=== PATIENT | female | born 1980 | race Caucasian/White ===

== ENCOUNTER 2025-05-12 11:56 | Emergency (ER) | payer SELFPAY ==
[2025-05-12 11:57] VITALS: BP 133/113; PULSE 97; RESP 18; TEMP 36.8; O2SAT 93; BMI 32.5
--- OUTSIDE RECORDS SUMMARY | 2025-05-12 12:02 | XMS_ITS | Encounter Summary ---
Author Organization [facility] Address [address] [place] [address] Care Team Providers Care Catechist Name Role Phone Gerardo Kingsley DO Primary Care Provider Unavaila ble Encounter Details Date Type Department Care Team (Late st Contact Info) Description 08/03/2017 Lab Requisition [facility] General Laboratory Services [place] [address] [place] [phone] Gerardo Kingsley DO NO ADDRESS ON FILE Social History Tobacco Use Types Packs/Day Years Used Date Smoking Tobacco: Every Day Cigarettes Smokeless Tobacco: Never Alcohol Use Standard Drinks/Week Comments No 0 (1 standard drink = 0.6 oz pur e alcohol) Comments No Sex and Gender Information Value Date Recorded Sex Assigned at Not on file Legal Sex Female 12:25 PM CDT Gender Identity Not on file Sexual Orientation Not on file documented as of this encounter Plan of Treatment Not on file documented as of this encounter Procedures Procedure Name Priority Date/Time Associated Diagnosis Comments CBC WITH DIFFERENTIAL Routine 08/03/2017 9:52 PM CDT SEDIMENTATION RATE Routine 08/03/2017 9: 52 PM CDT BASIC METABOLIC PANEL Routine 08/03/2017 9:52 PM CDT documented in this encounter Results * BASIC METABOLIC PANEL (08/03/2017 9:52 PM CDT) SODIUM 138 136 - 145 mmol/L 08/03/2017 11:51 PM CDT [facility] POTASSIUM 4.1 3.5 - 5.1 mmol/L 08/03/2017 11:51 PM CDT [facility] CHLORIDE 101 98 - 107 mmol/L 08/03/2017 11:51 PM CDT [facility] CO2 23 22 - 29 mmol/L 08/03/2017 11:[address] [facility] CALCIUM 9.3 8.6 - 10.0 mg/dL 08/03/2017 11:[address] [facility] BUN 17 6 - 20 mg/dL 08/03/2017 11:[address] [facility] CREATININE 0.70 0.51 - 0.95 mg/dL 08/03/2017 11:[address] [facility] GLUCOSE 104 74 - 106 mg/dL 08/03/2017 11:[address] [facility] GFR >60 >=60 mL/min/1.7 3 sq meter 08/03/2017 11:[address] [facility] Comment: eGFR has not been validated for use in the elderly (> 70 years of age), women, patients with serious co-morbid conditions, or persons with extremes of body size or muscle mass and should also be interpreted with caution in patients with acute kidney failure, dialysis dependent patients, patients reporting exceptional dietary intake (e.g. vegetarian diet, high protein diets, creatine supplementation), and patients with severe liver disease. Based on National Kidney Disease Education Program If patient is , please refer to the GFR result. GFR, >60 >=60 mL/min/1.7 3 sq meter 08/03/2017 11:51 PM T [facility] ANION GAP 14 12 - 20 mmol/L 08/03/2017 11:[address] [facility] Blood 08/03/2017 9:52 PM CDT 08/03/2017 11:01 PM CDT us Gerardo Kingsley DO CHEMISTRY ORDERABLES Final Resu lt [facility] CLIA # [id number] [address] [place] [address] * (ABNORMAL) CBC WITH DIFFERENTIAL (08/03/2017 9:52 PM CDT) WBC 9.7 4.0 - 10.0 K/uL 08/03/2017 11:[address] [facility] RBC 4.42 3.93 - 5.22 M/uL 08/03/2017 11:[address] [facility] HEMOGLOBIN 13.5 11.2 - 15.7 g/dL 08/03/2017 11:[address] [facility] HEMATOCRIT 41.4 34.1 - 44.9 % 08/03/2017 11:[address] [facility] MCV 93.7 79.4 - 94.8 fL 08/03/2017 11:[address] [facility] MCH 30.5 25.6 - 32.2 pg 08/03/2017 11:[address] [facility] MCHC 32.6 32.2 - 35.5 g/dL 08/03/2017 11:[address] [facility] RDW 13.4 11.0 - 14.5 % 08/03/2017 11:[address] [facility] RDW-STDEV 44.2 36.9 - 56.9 fL 08/03/2017 11:[address] [facility] PLATELETS 329 163 - 337 K/uL 08/03/2017 11:[address] [facility] MPV 10.7 10.0 - 14.8 fL 08/03/2017 11:[address] [facility] NEUTROPHILS 55 34 - 71 % 08/03/2017 11:[address] [facility] LYMPHOCYTES 30 19 - 52 % 08/03/2017 11:[address] [facility] MONOCYTES 9 5 - 13 % 08/03/2017 11:[address] [facility] EOSINOPHILS 6 1 - 6 % 08/03/2017 11:[address] [facility] BASOPHILS 1 0 - 1 % 08/03/2017 11:[address] [facility] IMMATURE GRANULOCYTES 0 % 08/03/2017 11:[address] [facility] NEUTROPHIL ABSOLUTE 5.32 1.56 - 6.13 K/uL 08/03/2017 11:36 PM CDT [facility] LYMPHOCYTE ABSOLUTE 2.93 1.20 - 3.40 K/uL 08/03/2017 11:36 PM CDT [facility] MONOCYTE ABSOLUTE 0.83(H) 0.24 - 0.36 K/uL 08/03/2017 11:36 PM CDT [facility] EOSINOPHIL ABSOLUTE 0.54(H) 0.04 - 0.36 K/uL 08/03/2017 11:36 PM CDT [facility] BASOPHILS ABSOLUTE 0.06 0.01 - 0.08 K/uL 08/03/2017 11:36 PM CDT [facility] IMMATURE GRANULOCYTES ABSOLUTE 0.02 K/uL 08/03/2017 11:36 PM T [facility] Blood 08/03/2017 9:52 PM CDT 08/03/2017 11:01 PM CDT us Gerardo Kingsley DO HEMATOLOGY ORDERABLES Final Res ult [facility] CLIA # [id number] [address] [place] [address] * SEDIMENTATION RATE (08/03/2017 9:52 PM CDT) ESR (SEDIMENTATION RATE) 8 0 - 20 mm/Hr 08/04/2017 12:56 AM CDT [facility] Blood 08/03/2017 9:52 PM CDT 08/03/2017 11:01 PM CDT us Gerardo Kingsley DO HEMATOLOGY ORDERABLES Final Res ult [facility] CLIA # [id number] [address] [place] [address] [phone] documented in this encounter Visit Diagnoses Not on filedocumented in this encounter Care Teams Catechist Relationship Specialty Start Date End Date Gerardo Kingsley DO PCP - General Family Practice 12/21/18 documented as of this encounter
--- OUTSIDE RECORDS SUMMARY | 2025-05-12 12:02 | XMS_ITS | Encounter Summary ---
Author Organization [facility] Address [address] [place] [address] Care Team Providers Care Manager Financial Systems Name Role Phone Gerardo Kingsley DO Primary Care Provider Unavaila ble Encounter Details Date Type Department Care Team (Late st Contact Info) Description 12/14/2017 Lab Requisition [facility] General Laboratory Services [place] [address] [place] [phone] Gerardo Kingsley DO NO ADDRESS ON FILE [...] Procedure Name Priority Date/Time Associated Diagnosis Comments TROPONIN Routine 12/14/2017 8:40 PM INSURANCE AGENTS SUPERVISOR TSH Routine 12/14/2017 8:40 PM INSURANCE AGENTS SUPERVISOR COMPREHENSIVE METABOLIC PANEL Routine 12/14/2017 8:40 PM INSURANCE AGENTS SUPERVISOR documented in this encounter Results * COMPREHENSIVE METABOLIC PANEL (12/14/2017 8:40 PM INSURANCE AGENTS SUPERVISOR) SODIUM 139 136 - 145 mmol/L 12/14/2017 11:36 PM INSURANCE AGENTS SUPERVISOR [facility] POTASSIUM 3.6 3.5 - 5.1 mmol/L 12/14/2017 11:36 PM INSURANCE AGENTS SUPERVISOR [facility] CHLORIDE 99 98 - 107 mmol/L 12/14/2017 11:36 PM [facility] CO2 26 22 - 29 mmol/L 12/14/2017 11:36 PM [facility] CALCIUM 9.6 8.6 - 10.0 mg/dL 12/14/2017 11:36 PM [facility] BUN 12 6 - 20 mg/dL 12/14/2017 11:36 PM [facility] CREATININE 0.76 0.51 - 0.95 mg/dL 12/14/2017 11:36 PM [facility] GLUCOSE 79 74 - 106 mg/dL 12/14/2017 11:36 PM [facility] TOTAL PROTEIN 7.4 6.6 - 8.7 g/dL 12/14/2017 11:36 PM [facility] ALBUMIN 4.5 3.5 - 5.2 g/dL 12/14/2017 11:36 PM [facility] BILIRUBIN TOTAL 0.2 0.0 - 1.2 mg/dL 12/14/2017 11:36 PM [facility] ALKALINE PHOSPHATASE 75 35 - 104 U/L 12/14/2017 11:36 PM [facility] AST 15 10 - 35 U/L 12/14/2017 11:36 PM [facility] ALT 14 10 - 35 U/L 12/14/2017 11:36 PM [facility] GFR >60 >=60 mL/min/1.7 3 sq meter 12/14/2017 11:36 PM [facility] Comment: eGFR has not been validated for [...] GFR, >60 >=60 mL/min/1.7 3 sq meter 12/14/2017 11:36 PM [facility] ANION GAP 14 12 - 20 mmol/L 12/14/2017 11:36 PM INSURANCE AGENTS SUPERVISOR [facility] Blood Venipuncture / Unknown 12/14/2017 8:40 PM INSURANCE AGENTS SUPERVISOR 12/14/2017 10:56 PM INSURANCE AGENTS SUPERVISOR us Gerardo Kingsley DO CHEMISTRY ORDERABLES Final Resu lt Performing Organization Address City/[facility]/ZIP Co de Phone Number [facility] CLIA # [id number] [address] [place] [address] * TSH (12/14/2017 8:40 PM INSURANCE AGENTS SUPERVISOR) TSH 2.62 0.27 - 4.20 uIU/mL 12/14/2017 11:36 PM INSURANCE AGENTS SUPERVISOR [facility] Blood Venipuncture / Unknown 12/14/2017 8:40 PM INSURANCE AGENTS SUPERVISOR 12/14/2017 10:56 PM INSURANCE AGENTS SUPERVISOR us Gerardo Kingsley DO CHEMISTRY ORDERABLES Final Resu lt Performing Organization Address [facility]/ZIP Co de Phone Number [facility] CLIA # [id number] [address] [place] [address] * TROPONIN (12/14/2017 8:40 PM INSURANCE AGENTS SUPERVISOR) TROPONIN T <0.01 <=0.01 ng/mL 12/14/2017 11:36 PM INSURANCE AGENTS SUPERVISOR [facility] Blood Venipuncture / Unknown 12/14/2017 8:40 PM INSURANCE AGENTS SUPERVISOR 12/14/2017 10:56 PM INSURANCE AGENTS SUPERVISOR us Geradro Kingsley DO CHEMISTRY ORDERABLES Final Resu lt Performing Organization Address [facility]/ZIP Co de Phone Number [facility] CLIA # [id number] [address] [place] [phone] documented in this encounter Visit Diagnoses Not on filedocumented in this encounter Care Teams Manager Financial Systems Relationship Specialty Start Date End Date Gerardo Kingsley, PCP - General Family Practice 2/26/19 documented as of this encounter
--- OUTSIDE RECORDS SUMMARY | 2025-05-12 12:02 | XMS_ITS | Encounter Summary ---
Author Organization [facility] Address [address] [place] [address] Care Team Providers Care Drum Handler Name Role Phone Gerardo Kingsley DO Primary Care Provider Unavaila ble Encounter Details Date Type Department Care Team (Late st Contact Info) Description 03/27/[address] [facility] Laboratory Services [place] [address] [place] [phone] Gerardo Kingsley DO NO ADDRESS ON FILE Sick Social History Tobacco Use Types Packs/Day Years [...] Procedure Name Priority Date/Time Associated Diagnosis Comments DIFFERENTIAL, MANUAL Routine 03/26/2015 6:00 PM CDT Sick [ICD-9-CM] CBC WITH DIFFERENTIAL Routine 03/26/2015 6:00 PM CDT Sick [ICD-9-CM] TSH Routine 03/26/2015 6:00 PM CDT Sick [ICD-9-CM] COMPREHENSIVE METABOLIC PANEL Routine 03/26/2015 6:00 PM CDT Sick [ICD-9-CM] documented in this encounter Results * (ABNORMAL) MANUAL DIFFERENTIAL (03/26/2015 6:00 PM CDT) Pathologist [facility] ADJUSTED WBC 11.3 K/uL 03/27/2015 10:23 AM T [facility] [employer] [facility] SEGMENTED NEUTROPHILS 65 45 - 70 % 03/27/2015 10:23 AM T [facility] [employer] [facility] LYMPHOCYTES RELATIVE 30 20 - 45 % 03/27/2015 10:23 AM T [facility] [employer] [facility] MONOCYTES RELATIVE 5 2 - 8 % 03/27/2015 10:23 AM T [facility] [employer] [facility] PLATELET EST. Consistent with Count 03/27/2015 10:23 AM T [facility] [employer] [facility] NEUTROPHILS ABSOLUTE COUNT 7.35(H) 1.78 - 5.38 K/uL 03/27/2015 10:23 AM T [facility] [employer] [facility] LYMPHOCYTES ABSOLUTE 3.39 1.20 - 4.00 K/uL 03/27/2015 10:23 AM T [facility] [employer] [facility] MONOCYTES ABSOLUTE 0.57 0.30 - 0.82 K/uL 03/27/2015 10:23 AM T [facility] [employer] [facility] TOTAL CELLS COUNTED IN DIFF 100 03/27/2015 10:23 AM T [facility] [employer] [facility] RBC MORPHOLOGY Normal 03/27/2015 10:23 AM [facility] [employer] [facility] Blood Venipuncture - L ab Collect / Unknown 03/26/2015 6:00 PM CDT 03/27/2015 10:02 AM CDT us Gerardo Kingsley DO HEMATOLOGY ORDERABLES COM Final Result [facility] CLIA # [id number] [address] [place] [address] * TSH (03/26/2015 6:00 PM CDT) Pathologist [facility] TSH 3.73 0.30 - 4.80 uIU/mL 03/27/2015 10:34 AM T [facility] [employer] [facility] Blood Venipuncture - L ab Collect / Unknown 03/26/2015 6:00 PM CDT 03/27/2015 10:02 AM CDT us Gerardo Kingsley DO CHEMISTRY ORDERABLES Final Resu lt [facility] [place] VICKIE # [id number] [address] [place] [id number] * (ABNORMAL) COMPREHENSIVE METABOLIC PANEL (03/26/2015 6:00 PM CDT) SODIUM 139 136 - 145 mmol/L 03/27/2015 10:34 AM CDT [employer] [facility] [place] POTASSIUM 3.8 3.5 - 5.1 mmol/L 03/27/2015 10:34 AM CDT [facility] [place] CHLORIDE 101 98 - 107 mmol/L 03/27/2015 10:34 AM CDT [facility] [place] CO2 29 21 - 32 mmol/L 03/27/2015 10:34 AM CDT [facility] [place] CALCIUM 8.9 8.5 - 10.1 mg/dL 03/27/2015 10:34 AM T [facility] [place] BUN 11 7 - 18 mg/dL 03/27/2015 10:34 AM CDT [employer] [facility] [place] CREATININE 0.86 0.60 - 1.30 mg/dL 03/27/2015 10:34 AM T [facility] [place] GLUCOSE 78 74 - 106 mg/dL 03/27/2015 10:34 AM T [employer] [facility] [place] TOTAL PROTEIN 8.1 6.4 - 8.2 g/dL 03/27/2015 10:34 AM T [facility] [place] ALBUMIN 4.4 3.4 - 5.0 g/dL 03/27/2015 10:34 AM CDT [employer] [facility] [place] BILIRUBIN TOTAL 0.2 0.2 - 1.0 mg/dL 03/27/2015 10:34 AM CDT [employer] [facility] [place] ALKALINE PHOSPHATASE 80 46 - 116 U/L 03/27/2015 10:34 AM CDT [employer] [facility] [place] AST 17 15 - 37 U/L 03/27/2015 10:34 AM CDT [employer] [facility] [place] ALT 22(L) 30 - 65 U/L 03/27/2015 10:34 AM CDT [facility] [employer] [facility] GFR >60 >=60 mL/min/1.7 3 sq meter 03/27/2015 10:34 AM [facility] [employer] [facility] Comment: eGFR has not been validated [...] GFR, >60 >=60 mL/min/1.7 3 sq meter 03/27/2015 10:34 AM T [facility] [employer] [facility] ANION GAP 9(L) 12 - 20 mmol/L 03/27/2015 10:34 AM [facility] [employer] [facility] Blood Venipuncture - L ab Collect / Unknown 03/26/2015 6:00 PM CDT 03/27/2015 10:02 AM CDT Narrative [facility] [employer] [facility] - 03/27/2015 10:34 AM CDT Effective 06/29/2014, the Alkaline Phosphatase test method and reference range have changed. Please take this into consideration when interpreting results prior to or after this date. us Gerardo Kingsley DO CHEMISTRY ORDERABLES Final Resu lt [facility] [employer] [id number] [address] [place] [address] * (ABNORMAL) CBC WITH DIFFERENTIAL (03/26/2015 6:00 PM CDT) WBC 11.3(H) 4.0 - 10.0 K/uL 03/27/2015 10:08 AM T [facility] [employer] [facility] RBC 5.06 3.93 - 5.22 M/uL 03/27/2015 10:08 AM [facility] [employer] [facility] HEMOGLOBIN 15.9(H) 11.2 - 15.7 g/dL 03/27/2015 10:08 AM CDT [employer] [facility] [place] HEMATOCRIT 46.5(H) 34.1 - 44.9 % 03/27/2015 10:08 AM CDT [facility] [place] MCV 91.9 79.4 - 94.8 fL 03/27/2015 10:08 AM CDT [facility] MCH 31.4 25.6 - 32.2 pg 03/27/2015 10:08 AM CDT [facility] [place] MCHC 34.2 32.2 - 35.5 g/dL 03/27/2015 10:08 AM CDT [facility] RDW 13.2 11.0 - 14.5 % 03/27/2015 10:08 AM T [facility] RDW-STDEV 43.4 36.9 - 56.9 fL 03/27/2015 10:08 AM CDT [employer] [facility] PLATELETS 290 163 - 337 K/uL 03/27/2015 10:08 AM CDT [employer] [facility] MPV 11.0 10.0 - 14.8 fL 03/27/2015 10:08 AM T [employer] [facility] Blood Venipuncture - L ab Collect / Unknown 03/26/2015 6:00 PM CDT 03/27/2015 10:02 AM CDT us Gerardo Kingsley DO HEMATOLOGY ORDERABLES Final Res ult [email or web address] CLIA # [id number] [address] [place] [address] [phone] documented in this encounter Visit Diagnoses Diagnosis Sick Other unknown and unspecified cause of morbidity or mortality documented in this encounter Care Teams Drum Handler Relationship Specialty Start Date End Date Gerardo Kingsley DO PCP - General Family Practice 12/21/18 documented as of this encounter
--- OUTSIDE RECORDS SUMMARY | 2025-05-12 12:02 | XMS_ITS | Encounter Summary ---
Author Organization [facility] Address [address] [place] [address] Care Team Providers Care Machine Driller Name Role Phone Gerardo Kingsley DO Primary Care Provider Unavaila ble Encounter Details Date Type Department Care Team (Late st Contact Info) Description 11/20/2020 Lab Requisition [facility] Laboratory Services [place] [address] [place] [phone] Gerardo Kingsley DO NO ADDRESS ON FILE Social History Tobacco Use Types Packs/Day Years Used Date Smoking Tobacco: Every Day Cigarettes 1.5 15 Smokeless Tobacco: Never Alcohol Use Standard Drinks/Week [...] Associated Diagnosis Comments CBC WITH DIFFERENTIAL Routine 11/20/2020 2:22 PM TUMBLER OPERATOR TSH Routine 11/20/2020 2:10 PM TUMBLER OPERATOR LIPID PANEL Routine 11/20/2020 2:10 PM TUMBLER OPERATOR COMPREHENSIVE METABOLIC PANEL Routine 11/20/2020 2:10 PM TUMBLER OPERATOR documented in this encounter Results * (ABNORMAL) CBC WITH DIFFERENTIAL (11/20/2020 2:22 PM TUMBLER OPERATOR) WBC 7.5 4.0 - 10.0 K/uL 11/20/2020 2:44 PM [place] RBC 4.65 3.93 - 5.22 M/uL 11/20/2020 2:44 PM [place] HEMOGLOBIN 14.1 11.2 - 15.7 g/dL 11/20/2020 2:44 PM [place] HEMATOCRIT 42.7 34.1 - 44.9 % 11/20/2020 2:44 PM [place] MCV 91.8 79.4 - 94.8 fL 11/20/2020 2:44 PM [place] MCH 30.3 25.6 - 32.2 pg 11/20/2020 2:44 PM [place] MCHC 33.0 32.2 - 35.5 g/dL 11/20/2020 2:44 PM [place] RDW 12.1 11.0 - 14.5 % 11/20/2020 2:44 PM [place] RDW-STDEV 41.0 36.9 - 56.9 fL 11/20/2020 2:44 PM [place] PLATELETS 373(H) 163 - 337 K/uL 11/20/2020 2:44 PM [place] MPV 10.1 10.0 - 14.8 fL 11/20/2020 2:44 PM [place] NEUTROPHILS 57 34 - 71 % 11/20/2020 2:44 PM [place] LYMPHOCYTES 29 19 - 52 % 11/20/2020 2:44 PM [place] MONOCYTES 8 5 - 13 % 11/20/2020 2:44 PM [place] EOSINOPHILS 5 1 - 6 % 11/20/2020 2:44 PM [place] BASOPHILS 1 0 - 1 % 11/20/2020 2:44 PM [place] IMMATURE GRANULOCYTES 0 % 11/20/2020 2:44 PM [place] NEUTROPHIL ABSOLUTE 4.31 1.56 - 6.13 K/uL 11/20/2020 2:44 PM [place] LYMPHOCYTE ABSOLUTE 2.22 1.20 - 3.40 K/uL 11/20/2020 2:44 PM TUMBLER OPERATOR [facility] MONOCYTE ABSOLUTE 0.57(H) 0.24 - 0.36 K/uL 11/20/2020 2:44 PM TUMBLER OPERATOR [facility] EOSINOPHIL ABSOLUTE 0.34 0.04 - 0.36 K/uL 11/20/2020 2:44 PM TUMBLER OPERATOR [facility] BASOPHILS ABSOLUTE 0.08 0.01 - 0.08 K/uL 11/20/2020 2:44 PM TUMBLER OPERATOR [facility] IMMATURE GRANULOCYTES ABSOLUTE 0.02 K/uL 11/20/2020 2:44 PM TUMBLER OPERATOR [facility] Blood Venipuncture / Unknown 11/20/2020 2:22 PM TUMBLER OPERATOR 11/20/2020 2:22 PM TUMBLER OPERATOR Gerardo Kingsley DO HEMATOLOGY ORDERABLES Final Res ult Performing Organization Address City/[facility]/ZIP Co de Phone Number [facility] CLIA # [id number] [address] [place] [address] * TSH (11/20/2020 2:10 PM TUMBLER OPERATOR) TSH 1.90 0.27 - 4.20 uIU/mL 11/20/2020 3:25 PM [place] Blood Venipuncture / Unknown 11/20/2020 2:10 PM TUMBLER OPERATOR 11/20/2020 2:10 PM TUMBLER OPERATOR Gerardo Kingsley DO CHEMISTRY ORDERABLES Final Resu lt [facility] CLIA # [id number] [address] [place] [address] * (ABNORMAL) LIPID PANEL (11/20/2020 2:10 PM TUMBLER OPERATOR) CHOLESTEROL 175 <200 mg/dL 11/20/2020 3:25 PM [place] TRIGLYCERIDE 160(H) <150 mg/dL 11/20/2020 3:25 PM [place] HDL 29(L) 40 - 59 mg/dL 11/20/2020 3:25 PM [place] LDL CALCULATED 114(H) <100 mg/dL 11/20/2020 3:25 PM [place] NON-HDL CHOLESTEROL 146(H) <130 mg/dL 11/20/2020 3:25 PM [place] Blood Venipuncture / Unknown 11/20/2020 2:10 PM TUMBLER OPERATOR 11/20/2020 2:10 PM TUMBLER OPERATOR [facility] - 11/20/2020 3:25 PM TUMBLER OPERATOR TOTAL CHOLESTEROL mg/dL Desirable <200 Borderline high 200-239 High >=240 TRIGLYCERIDES mg/dL Normal <150 Borderline high 150-199 High 200-499 Very high >=500 HDL CHOLESTEROL mg/dL Low <40 Normal 40-59 Desirable >=60 NON HDL CHOLESTEROL mg/dL Optimal <130 Near Optimal 130-159 Borderline High 160-189 Very High >=190 CALCULATED LDL mg/dL LDL <70, OPTIMAL if have Atherosclerotic cardiovascular disease (ASCVD) or intermediate or higher (>7.5%) 10 year risk of ASCVD including most adults with diabetes. LDL <100, Optimal in adult patients with low (<7.5%) 10 year ASCVD risk LDL 100-160, Suboptimal LDL >160, High LDL >190, Very high ATPIII Guidelines Reference Ranges for Lipid Panels (NCEP/AMA) . us Gerardo Kingsley DO CHEMISTRY ORDERABLES Final Resu lt [facility] CLIA # [id number] [address] [place] [address] * (ABNORMAL) COMPREHENSIVE METABOLIC PANEL (11/20/2020 2:10 PM TUMBLER OPERATOR) SODIUM 133(L) 136 - 145 mmol/L 11/20/2020 3:25 PM [place] POTASSIUM 4.1 3.5 - 5.1 mmol/L 11/20/2020 3:25 PM [place] CHLORIDE 100 98 - 107 mmol/L 11/20/2020 3:25 PM [place] CO2 28 22 - 29 mmol/L 11/20/2020 3:25 PM [place] CALCIUM 9.4 8.6 - 10.0 mg/dL 11/20/2020 3:25 PM [place] BUN 12 6 - 20 mg/dL 11/20/2020 3:25 PM [place] CREATININE 0.72 0.51 - 0.95 mg/dL 11/20/2020 3:25 PM [place] GLUCOSE 90 74 - 99 mg/dL 11/20/2020 3:25 PM [place] TOTAL PROTEIN 7.3 6.6 - 8.7 g/dL 11/20/2020 3:25 PM [place] ALBUMIN 4.2 3.5 - 5.2 g/dL 11/20/2020 3:25 PM [place] BILIRUBIN TOTAL 0.3 <=1.2 mg/dL 11/20/2020 3:25 PM [place] ALKALINE PHOSPHATASE 84 35 - 104 U/L 11/20/2020 3:25 PM [place] AST 15 10 - 35 U/L 11/20/2020 3:25 PM [place] ALT 15 10 - 35 U/L 11/20/2020 3:25 PM [place] GFR >60 >=60 mL/min/1.7 3 sq meter 11/20/2020 3:25 PM [place] Comment: eGFR has not been validated for [...] GFR, >60 >=60 mL/min/1.7 3 sq meter 11/20/2020 3:25 PM [place] ANION GAP 5(L) 12 - 20 mmol/L 11/20/2020 3:25 PM TUMBLER OPERATOR [facility] Blood Venipuncture / Unknown 11/20/2020 2:10 PM TUMBLER OPERATOR 11/20/2020 2:10 PM TUMBLER OPERATOR us Gerardo Kingsley DO CHEMISTRY ORDERABLES Final Resu lt [facility] CLIA # [id number] [address] [place] [id number] documented in this encounter Visit Diagnoses Not on filedocumented in this encounter Care Teams Machine Driller Relationship Specialty Start Date End Date Gerardo Kingsley DO PCP - General Family Practice 12/21/18 documented as of this encounter
--- OUTSIDE RECORDS SUMMARY | 2025-05-12 12:02 | XMS_ITS | Encounter Summary ---
Author Organization [facility] Address [address] [place] [address] Care Team Providers Care Contract Consultant Name Role Phone Gerardo Kingsley DO Primary Care Provider Unavaila ble Encounter Details Date Type Department Care Team (Late st Contact Info) Description 03/29/2018 Lab Requisition [facility] Laboratory Services [place] [address] [place] [id number] Ryan Nieto, PA [address] [place] [address] Social History Tobacco Use Types Packs/Day Years [...] Procedure Name Priority Date/Time Associated Diagnosis Comments ALPHA-GAL PANEL Routine 03/29/2018 8:00 PM CDT documented in this encounter Results * (ABNORMAL) ALPHA-GAL PANEL (03/29/2018 8:00 PM CDT) ALLERGEN BEEF, IGE 7.22(H) <0.35 kU/L 04/02/2018 3:56 PM CDT [facility] BEEF CLASS 3 04/02/2018 3:56 PM CDT [facility] ALLERGEN LESLIE/MUTTON, IGE 2.77(H) <0.35 kU/L 04/02/2018 3:56 PM CDT [facility] LESLIE/MUTTON CLASS 2 018 3:56 PM CDT [facility] ALLERGEN PORK, IGE 3.44(H) <0.35 kU/L 04/02/2018 3:56 PM CDT [facility] PORK CLASS 2 04/02/2018 3:56 PM CDT [facility] Comment: The test method is the CÜR ImmunoCAP allergen-specific IgE system. CLASS INTERPRETATION <0.10 kU/L= 0, Negative; 0.10 - 0.34 kU/L= 0/1, Equivocal/Borderline; 0.35 - 0.69 kU/L=1, Low Positive; 0.70 - 3.49 kU/L=2, Moderate Positive; 3.50 - 17.49 kU/L=3, High Positive; 17.50 - 49.99 kU/L= 4, Very High Positive; 50.00 - 99.99 kU/L= 5, Very High Positive; >99.99 kU/L=6, Very High Positive *This test was developed and its performance characteristics determined by [employer]. It has not been cleared or approved by the U.S. Food and Drug Administration. GALACTOSE - ALPHA -1, 3 - GALACTOSE, IGE 11.90(H) <0.35 kU/L 04/02/2018 3:56 PM CDT [facility] Comment: Previous reports (JUANY 2009;123:426-433) have demonstrated that patients with IgE antibodies to lusmkemsr-z-5,3-galactose are at risk for delayed anaphylaxis, angioedema, or urticaria following consumption of beef, pork, or leslie. Test Performed by: [facility], Interface [address] [place] [address] Blood Collection / Unknown 03/29/2018 8:00 PM CDT 03/29/2018 10:29 PM CDT us Ryan DALLAS CHEMISTRY ORDERABLES Final R esult [facility] documented in this encounter Visit Diagnoses Not on filedocumented in this encounter Care Teams Contract Consultant Relationship Specialty Start Date End Date Gerardo Kingsley DO PCP - General Family Practice 12/21/18 documented as of this encounter
--- OUTSIDE RECORDS SUMMARY | 2025-05-12 12:02 | XMS_ITS | Clinical Summary ---
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 Medications ibuprofen (MOTRIN) 200 mg tablet Take 800 mg by mouth every 6 hours as needed for Pain, Mild. 01/22/2021 Active acetaminophen (TYLENOL) 500 mg tablet Take 1,000 mg by mouth every 6 hours as needed. 01/22/2021 Active DILTIAZEM HCL ORAL Take by mouth. 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 Calcaneal spur, left 12/21/2018 Tailor's bunion of left foot 12/21/2018 Palpitations 02/12/2018 1st degree AV block 02/12/2018 Tobacco use 04/18/2016 Immunizations Immunization Administration Dates Next Due Influenza Seasonal Unspecified Formulation IM Social History Tobacco Use Types Packs/Day Years Used Date Smoking Tobacco: Every Day Cigarettes Smokeless Tobacco: Never Alcohol Use Standard Drinks/Week Comments Not Currently 0 (1 standard drink = 0.6 oz pur e alcohol) Comments No Sex and Gender Information Value Date Recorded Sex Assigned at Not on file Legal Sex Female 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 Gender Identity Not on file Sexual Orientation Not on file Last Filed Vital Signs Vital Sign Reading Time Taken Comments Blood Pressure 123/82 10/22/2023 5:45 PM BUSINESS SERVICES SALES REPRESENTATIVE Pulse 74 10/22/2023 5:45 PM BUSINESS SERVICES SALES REPRESENTATIVE Temperature 36.6 C (97.8 F) 10/22/2023 5:45 PM BUSINESS SERVICES SALES REPRESENTATIVE Respiratory Rate 20 10/22/2023 5:45 PM BUSINESS SERVICES SALES REPRESENTATIVE Oxygen Saturation 98% 10/22/2023 5:45 PM BUSINESS SERVICES SALES REPRESENTATIVE Inhaled Oxygen Concentration - - Weight 84.4 kg (186 lb) 10/22/2023 4:35 PM BUSINESS SERVICES SALES REPRESENTATIVE Height 175.3 cm (5' 9 ) 10/22/2023 4:35 PM BUSINESS SERVICES SALES REPRESENTATIVE Body Mass Index 27.47 10/22/2023 4:35 PM BUSINESS SERVICES SALES REPRESENTATIVE Plan of Treatment Health Maintenance Due Date Last Done Comments DTAP/TDAP/TD VACCINES (1 - Tdap) 1999 HEPATITIS B VACCINES (1 of 3 - 19+ 3-dose series) 1999 HPV/Cotest (21-29) 2001 CERVICAL CANCER SCREENING 2010 HPV/Cotest (30-65) 2010 PAP SMEAR 2010 BREAST CANCER SCREENING 2020 INFLUENZA VACCINE (#1) 2025 08/26/2017 HPV VACCINES Aged Out No longer eligi ble based on patient's age to complete this topic
--- OUTSIDE RECORDS SUMMARY | 2025-05-12 12:02 | XMS_ITS | Encounter Summary ---
Author Organization [facility] Address [address] [place] [address] Care Team Providers Care Turret Lathe Machinist Name Role Phone Gerardo Kingsley DO Primary Care Provider Unavaila ble Encounter Details Date Type Department Care Team (Late st Contact Info) Description 07/16/2021 Lab Requisition [facility] Laboratory Services [place] [address] [place] [address] Jerzy Barnard MD [address] [place] [phone] Social History Tobacco Use Types Packs/Day Years Used Date Smoking Tobacco: Every Day Cigarettes Smokeless Tobacco: Never Alcohol Use Standard Drinks/Week Comments No 0 (1 standard drink = 0.6 oz pur e alcohol) Comments Unknown Sex and Gender Information Value Date Recorded Sex Assigned at Not on file Legal 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 Gender Identity Not on file Sexual Orientation Not on file documented as of this encounter Plan of Treatment Not on file documented as of this encounter Procedures Procedure Name Priority Date/Time Associated Diagnosis Comments VITAMIN B12 LEVEL Routine 07/16/2021 6:5 3 AM CDT FOLATE, SERUM Routine 07/15/2021 6:53 AM CDT IRON, TIBC, AND PERCENT SATURATION Routine 07/15/2021 6:53 AM CDT CBC WITH DIFFERENTIAL Routine 07/15/2021 6:53 AM CDT TSH Routine 07/15/2021 6:53 AM CDT COMPREHENSIVE METABOLIC PANEL Routine 07/15/2021 6:53 AM CDT documented in this encounter Results * VITAMIN B12 LEVEL (07/16/2021 6:53 AM CDT) Pathologist [facility] VITAMIN B12 385 211 - 946 pg/mL 07/16/2021 11:46 PM CDT [facility] Blood 07/16/2021 6:53 AM CDT 07/16/2021 6:53 AM CDT Jerzy Barnard MD CHEMISTRY ORDERABLES Fi nal Result Performing Organization Address [facility]/ZIP Co de Phone Number [facility] CLIA # [id number] [address] [place] [phone] * (ABNORMAL) TSH (07/15/2021 6:53 AM CDT) [facility] TSH 4.70(H) 0.27 - 4.20 uIU/mL 07/16/2021 7:57 AM CDT [facility] Blood 07/15/2021 6:53 AM CDT 07/16/2021 6:53 AM CDT us Jerzy Barnard MD CHEMISTRY ORDERABLES Fi nal Result [facility] CLIA # [id number] [address] [place] [phone] * IRON, TIBC, AND PERCENT SATURATION (07/15/2021 6:53 AM CDT) Pathologist [facility] IRON 67 37 - 145 ug/dL 07/16/2021 11:36 PM CDT [facility] TIBC 303 250 - 450 ug/dL 07/16/2021 11:36 PM CDT [facility] IRON % SATURATION 22 15 - 60 % 07/16/2021 11:36 PM CDT [facility] Blood Collection / Unknown 07/15/2021 6:53 AM CDT 07/16/2021 6:53 AM CDT Jerzy Barnard MD CHEMISTRY ORDERABLES Fi nal Result Performing Organization Address [facility] Co de Phone Number [facility] CLIA # [id number] [address] [place] [phone] * FOLATE, SERUM (07/15/2021 6:53 AM CDT) [facility] FOLATE, SERUM 3.7 3.1 - 17.5 ng/mL 07/16/2021 11:58 PM CDT [facility] Blood Collection / Unknown 07/15/2021 6:53 AM CDT 07/16/2021 6:53 AM CDT Jerzy Barnard MD CHEMISTRY ORDERABLES Fi nal Result Performing Organization Address City/[facility] Co de Phone Number [facility] CLIA # [id number] [address] [place] [phone] * (ABNORMAL) COMPREHENSIVE METABOLIC PANEL (07/15/2021 6:53 AM CDT) [facility] SODIUM 139 136 - 145 mmol/L 07/16/2021 7:57 AM CDT [facility] POTASSIUM 3.3(L) 3.5 - 5.1 mmol/L 07/16/2021 7:57 AM CDT [facility] CHLORIDE 101 98 - 107 mmol/L 07/16/2021 7:57 AM CDT [facility] CO2 24 22 - 29 mmol/L 07/16/2021 7:57 AM CDT [facility] CALCIUM 9.3 8.6 - 10.0 mg/dL 07/16/2021 7:57 AM [facility] BUN 8 6 - 20 mg/dL 07/16/2021 7:57 AM [facility] CREATININE 0.73 0.51 - 0.95 mg/dL 07/16/2021 7:57 AM [facility] GLUCOSE 84 74 - 99 mg/dL 07/16/2021 7:57 AM [facility] TOTAL PROTEIN 7.4 6.6 - 8.7 g/dL 07/16/2021 7:57 AM [facility] ALBUMIN 4.4 3.5 - 5.2 g/dL 07/16/2021 7:57 AM [facility] BILIRUBIN TOTAL 0.2 <=1.2 mg/dL 07/16/2021 7:57 AM [facility] ALKALINE PHOSPHATASE 100 35 - 104 U/L 07/16/2021 7:57 AM [facility] AST 18 10 - 35 U/L 07/16/2021 7:57 AM [facility] ALT 17 10 - 35 U/L 07/16/2021 7:57 AM [facility] GFR >60 mL/min/1.7 3 sq meter 07/16/2021 7:57 AM [facility] Comment: eGFR has not been validated [...] refer to the GFR result. GFR, >60 mL/min/1.7 3 sq meter 07/16/2021 7:57 AM [facility] ANION GAP 14 12 - 20 mmol/L 07/16/2021 7:57 AM [facility] Blood 07/15/2021 6:53 AM CDT 07/16/2021 6:53 AM CDT us Jerzy Barnard MD CHEMISTRY ORDERABLES Fi nal Result [facility] VICKIE # [id number] [address] [place] [address] * (ABNORMAL) CBC WITH DIFFERENTIAL (07/15/2021 6:53 AM CDT) WBC 10.2(H) 4.0 - 10.0 K/uL 07/16/2021 7:39 AM [facility] RBC 4.65 3.93 - 5.22 M/uL 07/16/2021 7:39 AM [facility] HEMOGLOBIN 14.2 11.2 - 15.7 g/dL 07/16/2021 7:39 AM [facility] HEMATOCRIT 42.0 34.1 - 44.9 % 07/16/2021 7:39 AM [facility] MCV 90.3 79.4 - 94.8 fL 07/16/2021 7:39 AM [facility] MCH 30.5 25.6 - 32.2 pg 07/16/2021 7:39 AM [facility] MCHC 33.8 32.2 - 35.5 g/dL 07/16/2021 7:39 AM [facility] RDW 12.1 11.0 - 14.5 % 07/16/2021 7:39 AM [facility] RDW-STDEV 40.3 36.9 - 56.9 fL 07/16/2021 7:39 AM [facility] PLATELETS 400(H) 163 - 337 K/uL 07/16/2021 7:39 AM [facility] MPV 10.0 10.0 - 14.8 fL 07/16/2021 7:39 AM [facility] NEUTROPHILS 52 34 - 71 % 07/16/2021 7:39 AM [facility] LYMPHOCYTES 37 19 - 52 % 07/16/2021 7:39 AM [facility] MONOCYTES 7 5 - 13 % 07/16/2021 7:39 AM [facility] EOSINOPHILS 3 1 - 6 % 07/16/2021 7:39 AM [facility] BASOPHILS 1 0 - 1 % 07/16/2021 7:39 AM [facility] IMMATURE GRANULOCYTES 0 % 07/16/2021 7:39 AM [facility] NEUTROPHIL ABSOLUTE 5.34 1.56 - 6.13 K/uL 07/16/2021 7:39 AM [facility] LYMPHOCYTE ABSOLUTE 3.80(H) 1.20 - 3.40 K/uL 07/16/2021 7:39 AM [facility] MONOCYTE ABSOLUTE 0.69(H) 0.24 - 0.36 K/uL 07/16/2021 7:39 AM [facility] EOSINOPHIL ABSOLUTE 0.28 0.04 - 0.36 K/uL 07/16/2021 7:39 AM [facility] BASOPHILS ABSOLUTE 0.08 0.01 - 0.08 K/uL 07/16/2021 7:39 AM [facility] IMMATURE GRANULOCYTES ABSOLUTE 0.02 K/uL 07/16/2021 7:39 AM [facility] Blood 07/15/2021 6:53 AM CDT 07/16/2021 6:53 AM CDT Jerzy Barnard MD HEMATOLOGY ORDERABLES F inal Result [facility] CLIA # [id number] [address] [place] [address] documented in this encounter Visit Diagnoses Not on filedocumented in this encounter Care Teams Turret Lathe Machinist Relationship Specialty Start Date End Date Gerardo Kingsley DO PCP - General 01/22/21 06/02/22 documented as of this encounter
--- OUTSIDE RECORDS SUMMARY | 2025-05-12 12:02 | XMS_ITS | Clinical Summary ---
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 Medications citalopram (CeleXA) 20 mg tablet Take 1 Tablet (20 mg) by mouth daily. 30 Tablet 10/21/2016 Active acetaminophen (TYLENOL) 500 mg tablet Take 1,000 mg by mouth every 6 hours as needed. Active ibuprofen (MOTRIN) 200 mg tablet Take 800 mg by mouth every 6 hours as needed for Pain, Mild. 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 Calcaneal spur, left 12/21/2018 Tailor's bunion of left foot 12/21/2018 Palpitations 02/12/2018 1st degree AV block 02/12/2018 Tobacco use 04/18/2016 Immunizations Immunization Administration Dates Next Due Influenza Seasonal Unspecified Formulation IM Social History Tobacco Use Types Packs/Day Years Used Date Smoking Tobacco: Every Day Cigarettes 0.5 15 Smokeless Tobacco: Never Tobacco Cessation:Ready to Q uit: No; Counseling Given: Yes Alcohol Use Standard Drinks/Week Comments No 0 (1 standard drink = 0.6 oz pur e alcohol) Comments No Sex and Gender Information Value Date Recorded Sex Assigned at Not on file Legal Sex Female 12:25 PM CDT Gender Identity Not on file Sexual Orientation Not on file Last Filed Vital Signs Vital Sign Reading Time Taken Comments Blood Pressure 123/73 01/22/2021 9:11 AM CDT Pulse 78 10/21/2019 3:08 PM 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 Temperature 36.4 C (97.6 F) 01/22/2021 9:11 AM CDT Respiratory Rate 20 01/22/2021 9:11 AM CDT Oxygen Saturation 95% 01/22/2021 9:11 AM CDT Inhaled Oxygen Concentration - - Weight 82.8 kg (182 lb 9.6 oz) 01/22/2021 8:32 A M CDT Height 175.3 cm (5' 9 ) 01/22/2021 8:32 AM CDT Body Mass Index 26.97 01/22/2021 8:32 AM CDT Plan of Treatment Health Maintenance Due Date [...] on patient's age to complete this topic Insurance WORKERS COMP Advance Directives For more information, please contact: [phone] * Full Code (Latest Code Status on File) Date Activated Date Inactivated Comments 05/20/2019 5:07 PM 05/22/2019 12:51 PM Care Teams Eligibility Services Representative Relationship Specialty Start Date End Date Gerardo Kingsley DO PCP - General Family Practice 12/21/18
--- OUTSIDE RECORDS SUMMARY | 2025-05-12 12:02 | XMS_ITS | Encounter Summary ---
Author Organization [facility] Address [address] [facility] [place] [address] Care Team Providers Care Pharmaceutical Physician Name Role Phone Gerardo Kingsley DO Primary Care Provider Unavaila ble Reason for Referral * Outpatient Services (Routine) - Closed Specialty Diagnoses / Procedures Referred By Conchis naranjo Referred To Contact Diagnoses Chest pain Abnormal EKG Procedures ECHO STRESS TEST EXERCISE W DOPP AND COLOR FLOW Gerardo Kingsley DO [facility] Pre-Registration [place] CALL TO MAKE APPOINTMENT ONLY [address] [place] [facility] [place] [address] Phone: tel: fax: Referral ID Status Reason Start Date Expiration Date V isits Requested Visits Authorized [id number] Closed F [facility] TO SCHEDULE ([facility]) 12/16/2017 01/16/2019 1 1 [employer] Encounter Details Date Type Department Care Team ([facility] Contact Info) Description 12/16/2017 Ancillary Orders [facility] Pre-Registration [place] CALL TO MAKE APPOINTMENT ONLY [address] [place] [facility] [place] [phone] Gerardo Kingsley DO NO ADDRESS ON FILE Chest pain; Abnormal EKG Social History Tobacco Use Types Packs/Day Years [...] on file documented as of this encounter Results * ECHO STRESS TEST EXERCISE W DOPP AND COLOR FLOW (01/01/2018 10:37 AM [facility]) EJECTION FRACTION 63 INTERFACE SYSTEM 01/01/2018 9:53 AM [facility] Narrative INTERFACE SYSTEM - 01/01/2018 11:32 AM [facility] Echocardiography-[place] [address] [place] [address] Stress Echocardiography Pool protocol Patient: Audie Study ECHO STRESS Karin Coates ID: TEST Gender: F : 1980 Age: 37 Room: Study 01/01/2018 Pt Outpatient Date: Status: Study 09:53 AM [facility] #: [id number] Time: Ordering:eGrardo Kingsley Interpreting:Steve Bryant MD Storage Battery Charger: Gayle Crowder [facility] Indications and History: CP. Abnormal EKG. Summary and Conclusion: - Left ventricle: The cavity size was upper normal to mildly increased. Wall thickness was normal. Systolic function was normal. The left ventricular ejection fraction was 63%, by biplane method of disks. The visually estimated ejection fraction was in the range of 55% to 60%. No diagnostic regional wall motion abnormality identified. - Right ventricle: The cavity size was normal. Systolic function was normal. Systolic pressure was within the normal range. - Mitral valve: Trivial to mild regurgitation. - Tricuspid valve: Mild regurgitation. - Pulmonic valve: Mild regurgitation. - Stress: Maximal heart rate during stress was 169bpm (92% of maximal predicted heart rate). The maximal predicted heart rate was 183bpm.The target heart rate was achieved. The rate-pressure product for the peak heart rate and blood pressure was 29089gs Hg/min. The patient experienced no chest pain during stress. Functional capacity was normal. Maximal work rate: 10.1mets. - Stress ECG conclusions: There were no stress arrhythmias or conduction abnormalities. The stress ECG was negative for ischemia. Jones scoring: exercise time of 9min; maximum ST deviation of 0mm; no angina; resulting score is 9. This score predicts a low risk of cardiac events. - Staged echo: There was no echocardiographic evidence for stress-induced ischemia. Procedure information: No prior study was available for comparison. Consent: The risks, benefits, and alternatives to the procedure were explained to the patient and consent was obtained. Procedure: Initial setup. A baseline ECG was recorded. Surface ECG leads were monitored. Transthoracic echocardiography. Image quality was adequate. Scanning was performed from the parasternal, apical, subcostal, and suprasternal notch acoustic windows. Treadmill exercise testing was performed using the Pool protocol. The patient exercised for 9 min, to protocol stage 3. Exercise was terminated due to achievement of target heart rate. The patient was positioned for image acquisition and recovery monitoring. Transthoracic stress echocardiography. Images were captured at baseline and peak exercise. Study completion: The patient tolerated the procedure well. There were no complications. Pool protocol. Study components: M-mode, complete 2D, complete spectral Doppler, and color Doppler. Height: Height: 175.3cm. Height: 69in. Weight: Weight: 78.2kg. Weight: 172lb. Body mass index: BMI: 25.4kg/m\S\2. Body surface area: BSA: 1.96m\S\2. Patient status: Outpatient. Study date: Study date: January 01, 2018. Location: Stress laboratory. Cardiac Anatomy: LEFT VENTRICLE: The cavity size was upper normal to mildly increased. Wall thickness was normal. Systolic function was normal. The left ventricular ejection fraction was 63%, by biplane method of disks. The visually estimated ejection fraction was in the range of 55% to 60%. No diagnostic regional wall motion abnormality identified. RIGHT VENTRICLE: The cavity size was normal. Systolic function was normal. Systolic pressure was within the normal range. LEFT ATRIUM: The atrium was normal in size. RIGHT ATRIUM: The atrium was normal in size. AORTIC VALVE: Structurally normal valve. Doppler: There was no stenosis. Trivial regurgitation. Peak velocity ratio of LVOT to aortic valve: 0.72. Mean gradient: 2mm Hg (S). Peak gradient: 9mm Hg (S). MITRAL VALVE: Structurally normal valve. Doppler: There was no evidence for stenosis. Trivial to mild regurgitation. Valve area by pressure half-time: 3.79cm\S\2. Indexed valve area by pressure half-time: 1.93cm\S\2/m\S\2. Peak gradient: 4mm Hg (D). TRICUSPID VALVE: Structurally normal valve. Doppler: There was no evidence for stenosis. Mild regurgitation. PULMONIC VALVE: Not well visualized. Doppler: There was no evidence for stenosis. Mild regurgitation. PERICARDIUM: There was no pericardial effusion. AORTA: Aortic root: The aortic root was not dilated. Baseline ECG: Normal sinus rhythm. Stress protocol: - Baseline HR: 84bpm BP: 153/80 (104) - Peak stress HR: 169bpm BP: 145/95 (112) Stress results: Maximal heart rate during stress was 169bpm (92% of maximal predicted heart rate). The maximal predicted heart rate was 183bpm.The target heart rate was achieved. There was a normal resting blood pressure with an appropriate response to stress. The rate-pressure product for the peak heart rate and blood pressure was 76396pz Hg/min. The patient experienced no chest pain during stress. Functional capacity was normal. Maximal work rate: 10.1mets. Stress ECG: There were no stress arrhythmias or conduction abnormalities. The stress ECG was negative for ischemia. Jones scoring: exercise time of 9min; maximum ST deviation of 0mm; no angina; resulting score is 9. This score predicts a low risk of cardiac events. Peak stress: LV size was reduced appropriately. LV global systolic function was appropriately augmented from baseline. The estimated LV ejection fraction was 70-75%. No evidence for new LV regional wall motion abnormalities. Stress echo results: There was no echocardiographic evidence for stress-induced ischemia. 2D measurements Doppler measurements Left ventricle Left ventricle LVID ED, chord, 59.54 mm IVRT 76 ms PLAX LVOT LVID ES, chord, 35.39 mm Peak kenyetta, S 105.96 cm/s PLAX VTI, S 21.88 cm FS, chord, PLAX 41 % HR 187 bpm LVPW, ED 7.87 mm Aortic valve IVS/LVPW ratio, 1.07 Peak kenyetta, S 146.93 cm/s ED Mean kenyetta, S 68.75 cm/s Vol ED, MOD1 106.2 ml Mean 2 mm Hg Vol ES, MOD1 45.5 ml gradient, S EF, MOD1 57.18 % Peak 9 mm Hg Stroke vol, MOD1 60.7 ml gradient, S Vol index, ED, 54 ml/m\S\2 Peak kenyetta 0.72 MOD1 ratio, Vol index, ES, 23 ml/m\S\2 LVOT/AV MOD1 Mitral valve Stroke index, 31 ml/m\S\2 Peak E kenyetta 95.78 cm/s MOD1 Peak A kenyetta 54.39 cm/s Vol ED, MOD2 111.9 ml Deceleration 200 ms Vol ES, MOD2 41.1 ml time EF, MOD2 63.24 % Pressure 58 ms Vol index, ED, 57 ml/m\S\2 half-time MOD2 Peak 4 mm Hg Vol index, ES, 21 ml/m\S\2 gradient, D MOD2 Peak E/A 1.76 Ventricular septum ratio IVS, ED 8.39 mm Area (PHT) 3.79 cm\S\2 Aorta Area index 1.93 cm\S\2/m\S\2 Root diam, ED 26 mm (PHT) Left atrium Tricuspid valve AP dim ES, PLAX 31.62 mm Regurg peak 244.78 cm/s SI dim, A4C 43.52 mm kenyetta Area ES, A4C 13.49 cm\S\2 Peak RV-RA 24 mm Hg Vol, S 32.1 ml gradient, S Vol index, S 16.4 ml/m\S\2 Max regurg 244.78 cm/s Right ventricle kenyetta RVID ED, PLAX 19.92 mm [facility] Echo Labs are accredited with the Interslower [place] hospitaletal Accreditation Commission - Echocardiography. Prepared and Electronically Authenticated Steve Bryant MD Confirmed 01/01/2018 11:32 Procedure Note Steve Bryant MD - 01/01/2018 [facility] Echocardiography-[address] [place] [address] Stress Echocardiography Pool protocol Patient: Audie Study ECHO STRESS Karin Aminata ID: TEST Gender: Jeaneth : 1980 Age: 37 Room: Study 01/01/2018 Pt Outpatient Date: Status: Study 09:53 AM CSN #: [id number] Time: Ordering:Gerardo Kingsley Interpreting:Steve Bryant MD Storage Battery Charger: Gayle Crowder [facility] Indications and History: CP. Abnormal EKG. Summary and Conclusion: - Left ventricle: The cavity size was upper normal to mildly increased. Wall thickness was normal. Systolic function was normal. The left ventricular ejection fraction was 63%, by biplane method of disks. The visually estimated ejection fraction was in the range of 55% to 60%. No diagnostic regional wall motion abnormality identified. - Right ventricle: The cavity size was normal. Systolic function was normal. Systolic pressure was within the normal range. - Mitral valve: Trivial to mild regurgitation. - Tricuspid valve: Mild regurgitation. - Pulmonic valve: Mild regurgitation. - Stress: Maximal heart rate during stress was 169bpm (92% of maximal predicted heart rate). The maximal predicted heart rate was 183bpm.The target heart rate was achieved. The rate-pressure product for the peak heart rate and blood pressure was 18179jg Hg/min. The patient experienced no chest pain during stress. Functional capacity was normal. Maximal work rate: 10.1mets. - Stress ECG conclusions: There were no stress arrhythmias or conduction abnormalities. The stress ECG was negative for ischemia. Jones scoring: exercise time of 9min; maximum ST deviation of 0mm; no angina; resulting score is 9. This score predicts a low risk of cardiac events. - Staged echo: There was no echocardiographic evidence for stress-induced ischemia. Procedure information: No prior study was available for comparison. Consent: The risks, benefits, and alternatives to the procedure were explained to the patient and consent was obtained. Procedure: Initial setup. A baseline ECG was recorded. Surface ECG leads were monitored. Transthoracic echocardiography. Image quality was adequate. Scanning was performed from the parasternal, apical, subcostal, and suprasternal notch acoustic windows. Treadmill exercise testing was performed using the Pool protocol. The patient exercised for 9 min, to protocol stage 3. Exercise was terminated due to achievement of target heart rate. The patient was positioned for image acquisition and recovery monitoring. Transthoracic stress echocardiography. Images were captured at baseline and peak exercise. Study completion: The patient tolerated the procedure well. There were no complications. Pool protocol. Study components: M-mode, complete 2D, complete spectral Doppler, and color Doppler. Height: Height: 175.3cm. Height: 69in. Weight: Weight: 78.2kg. Weight: 172lb. Body mass index: BMI: 25.4kg/m\S\2. Body surface area: BSA: 1.96m\S\2. Patient status: Outpatient. Study date: Study date: January 01, 2018. Location: Stress laboratory. Cardiac Anatomy: LEFT VENTRICLE: The cavity size was upper normal to mildly increased. Wall thickness was normal. Systolic function was normal. The left ventricular ejection fraction was 63%, by biplane method of disks. The visually estimated ejection fraction was in the range of 55% to 60%. No diagnostic regional wall motion abnormality identified. RIGHT VENTRICLE: The cavity size was normal. Systolic function was normal. Systolic pressure was within the normal range. LEFT ATRIUM: The atrium was normal in size. RIGHT ATRIUM: The atrium was normal in size. AORTIC VALVE: Structurally normal valve. Doppler: There was no stenosis. Trivial regurgitation. Peak velocity ratio of LVOT to aortic valve: 0.72. Mean gradient: 2mm Hg (S). Peak gradient: 9mm Hg (S). MITRAL VALVE: Structurally normal valve. Doppler: There was no evidence for stenosis. Trivial to mild regurgitation. Valve area by pressure half-time: 3.79cm\S\2. Indexed valve area by pressure half-time: 1.93cm\S\2/m\S\2. Peak gradient: 4mm Hg (D). TRICUSPID VALVE: Structurally normal valve. Doppler: There was no evidence for stenosis. Mild regurgitation. PULMONIC VALVE: Not well visualized. Doppler: There was no evidence for stenosis. Mild regurgitation. PERICARDIUM: There was no pericardial effusion. AORTA: Aortic root: The aortic root was not dilated. Baseline ECG: Normal sinus rhythm. Stress protocol: - Baseline HR: 84bpm BP: 153/80 (104) - Peak stress HR: 169bpm BP: 145/95 (112) Stress results: Maximal heart rate during stress was 169bpm (92% of maximal predicted heart rate). The maximal predicted heart rate was 183bpm.The target heart rate was achieved. There was a normal resting blood pressure with an appropriate response to stress. The rate-pressure product for the peak heart rate and blood pressure was 35386yc Hg/min. The patient experienced no chest pain during stress. Functional capacity was normal. Maximal work rate: 10.1mets. Stress ECG: There were no stress arrhythmias or conduction abnormalities. The stress ECG was negative for ischemia. Jones scoring: exercise time of 9min; maximum ST deviation of 0mm; no angina; resulting score is 9. This score predicts a low risk of cardiac events. Peak stress: LV size was reduced appropriately. LV global systolic function was appropriately augmented from baseline. The estimated LV ejection fraction was 70-75%. No evidence for new LV regional wall motion abnormalities. Stress echo results: There was no echocardiographic evidence for stress-induced ischemia. 2D measurements Doppler measurements Left ventricle Left ventricle LVID ED, chord, 59.54 mm IVRT 76 ms PLAX LVOT LVID ES, chord, 35.39 mm Peak kenyetta, S 105.96 cm/s PLAX VTI, S 21.88 cm FS, chord, PLAX 41 % HR 187 bpm LVPW, ED 7.87 mm Aortic valve IVS/LVPW ratio, 1.07 Peak kenyetta, S 146.93 cm/s ED Mean kenyetta, S 68.75 cm/s Vol ED, MOD1 106.2 ml Mean 2 mm Hg Vol ES, MOD1 45.5 ml gradient, S EF, MOD1 57.18 % Peak 9 mm Hg Stroke vol, MOD1 60.7 ml gradient, S Vol index, ED, 54 ml/m\S\2 Peak kenyetta 0.72 MOD1 ratio, Vol index, ES, 23 ml/m\S\2 LVOT/AV MOD1 Mitral valve Stroke index, 31 ml/m\S\2 Peak E kenyetta 95.78 cm/s MOD1 Peak A kenyetta 54.39 cm/s Vol ED, MOD2 111.9 ml Deceleration 200 ms Vol ES, MOD2 41.1 ml time EF, MOD2 63.24 % Pressure 58 ms Vol index, ED, 57 ml/m\S\2 half-time MOD2 Peak 4 mm Hg Vol index, ES, 21 ml/m\S\2 gradient, D MOD2 Peak E/A 1.76 Ventricular septum ratio IVS, ED 8.39 mm Area (PHT) 3.79 cm\S\2 Aorta Area index 1.93 cm\S\2/m\S\2 Root diam, ED 26 mm (PHT) Left atrium Tricuspid valve AP dim ES, PLAX 31.62 mm Regurg peak 244.78 cm/s SI dim, A4C 43.52 mm kenyetta Area ES, A4C 13.49 cm\S\2 Peak RV-RA 24 mm Hg Vol, S 32.1 ml gradient, S Vol index, S 16.4 ml/m\S\2 Max regurg 244.78 cm/s Right ventricle kenyetta RVID ED, PLAX 19.92 mm [facility] are accredited with the Intersocietal Accreditation Commission - Echocardiography. Prepared and Electronically Authenticated Steve Bryant MD Confirmed 01/01/2018 11:32 us Gerardo Kingsley DO ORDERABLES Final Result INTERFACE SYSTEM Refer to clinic/hospital department documented in this encounter Visit Diagnoses Diagnosis Chest pain Chest pain, unspecified Abnormal EKG Nonspecific abnormal electrocardiogram (ECG) (EKG) Chest pain Chest pain, unspecified Abnormal EKG Nonspecific abnormal electrocardiogram (ECG) (EKG) documented in this encounter Care Teams Pharmaceutical Physician Relationship Specialty Start Date End Date Gerardo Kingsley, PCP - General Family Practice 12/21/18 documented as of this encounter
--- OUTSIDE RECORDS SUMMARY | 2025-05-12 12:02 | XMS_ITS | Encounter Summary ---
Author Organization [facility] Address [address] [place] [address] Care Team Providers Care Circle Saw Operator Name Role Phone Gerardo Kingsley DO Primary Care Provider Unavaila ble Encounter Details Date Type Department Care Team (Late st Contact Info) Description 04/16/2015 Lab Requisition [facility] Laboratory Services [place] [address] [place] [phone] [place] Kimble, [employer]INCIPAL [address] [place] [phone] Social History Tobacco Use Types Packs/Day Years [...] Date/Time Associated Diagnosis Comments DIFFERENTIAL, MANUAL Routine 04/16/2015 9:52 PM CDT CBC WITH DIFFERENTIAL Routine 04/16/2015 9:52 PM CDT documented in this encounter Results * (ABNORMAL) MANUAL DIFFERENTIAL (04/16/2015 9:52 PM CDT) SEGMENTED NEUTROPHILS 67 45 - 70 % 04/16/2015 10:48 PM CDT [facility] [place] LYMPHOCYTES RELATIVE 24 20 - 45 % 04/16/2015 10:48 PM CDT [facility] [place] MONOCYTES RELATIVE 6 2 - 8 % 04/16/2015 10:48 PM CDT [facility] [place] EOSINOPHILS RELATIVE 3 0 - 5 % 04/16/2015 10:48 PM CDT [facility] [place] NEUTROPHILS ABSOLUTE COUNT 9.05(H) 1.78 - 5.38 K/uL 04/16/2015 10:48 PM CDT [facility] [place] LYMPHOCYTES ABSOLUTE 3.24 1.20 - 4.00 K/uL 04/16/2015 10:48 PM CDT [facility] [place] MONOCYTES ABSOLUTE 0.81 0.30 - 0.82 K/uL 04/16/2015 10:48 PM CDT [facility] LABOR[facility] [place] EOSINOPHILS ABSOLUTE 0.41 0.04 - 0.54 K/uL 04/16/2015 10:48 PM CDT [facility] LABOR[facility] [place] TOTAL CELLS COUNTED IN DIFF 100 04/16/2015 10:48 PM CDT [facility] [place] PLATELET EST. Consistent with Count 04/16/2015 10:48 PM T [facility] Thumbs Up [facility] [place] RBC MORPHOLOGY Normal 04/16/2015 10:48 PM T [facility] Thumbs Up [facility] [place] Blood 04/16/2015 9:52 PM CDT 04/16/2015 9:52 PM CDT [place] Kimble [employer]DLE [employer] PRINCIPAL HEMATOLOGY ORDERABLES COM Final Result [facility] [place] CLIA # [id number] [address] [place] [address] * (ABNORMAL) CBC WITH DIFFERENTIAL (04/16/2015 9:52 PM CDT) WBC 13.5(H) 4.0 - 10.0 K/uL 04/16/2015 10:03 PM CDT [facility] [place] RBC 4.79 3.93 - 5.22 M/uL 04/16/2015 10:03 PM CDT [facility] LABOR[facility] [place] HEMOGLOBIN 15.1 11.2 - 15.7 g/dL 04/16/2015 10:03 PM CDT [facility] [place] HEMATOCRIT 44.0 34.1 - 44.9 % 04/16/2015 10:03 PM CDT [facility] [place] MCV 91.9 79.4 - 94.8 fL 04/16/2015 10:03 PM CDT [facility] [place] MCH 31.5 25.6 - 32.2 pg 04/16/2015 10:03 PM CDT [facility] [place] MCHC 34.3 32.2 - 35.5 g/dL 04/16/2015 10:03 PM CDT [facility] [place] RDW 13.3 11.0 - 14.5 % 04/16/2015 10:03 PM CDT [facility] [place] RDW-STDEV 44.1 36.9 - 56.9 fL 04/16/2015 10:03 PM CDT [facility] [place] PLATELETS 285 163 - 337 K/uL 04/16/2015 10:03 PM CDT [facility] - [place] MPV 10.9 10.0 - 14.8 fL 04/16/2015 10:03 PM CDT [facility] [place] Blood 04/16/2015 9:52 PM CDT 04/16/2015 9:52 PM CDT us [place] Kimble [employer] PRINCIPAL HEMATOLOGY ORDERABLES Final Res ult [facility] [place] CLIA # [id number] [address] [place] [address] documented in this encounter Visit Diagnoses Not on filedocumented in this encounter Care Teams Circle Saw Operator Relationship Specialty Start Date End Date Gerardo Kingsley DO PCP - General Family Practice 12/21/18 documented as of this encounter
--- NOTE | 2025-05-12 12:11 | XR_ITS ---
WS: [id number] XR chest 1V portable [id number] REASON FOR EXAM: chest pain FINDINGS: The heart and the mediastinum are within normal limits. Calcified granulomatous disease in both hemithoraces. No acute pulmonary parenchymal or pleural abnormality. No significant abnormality of the bony thorax. XR/XR chest 1V portable [id number] IMPRESSION: No acute chest abnormality.
[2025-05-12 12:22] LABS: Hematocrit 47.6 % (36-47); Hemoglobin 16.00 g/dL (11.27-16.99); Mean Corpuscular HGB Conc 33.6 g/dL (30-55); Mean Corpuscular Hemoglobin 29.9 pg (27-33); Mean Corpuscular Volume 89.0 fl (85-98); Nucleated Red Blood Cells % 0 %; Platelet Count 393 10^3/cmm (157-399); Red Blood Count 5.35 10^6/uL (3.85-5.65); White Blood Count 11.83 10^3/uL (3.29-11.43)
[2025-05-12 12:23] LABS: HCG Qualitative Urine. Negative (Negative)
[2025-05-12 12:39] LABS: Glucose Urine UA Negative (Normal); Nitrate Urine Negative (Negative); Specific Gravity, Urine 1.007 (1.005-1.030)
[2025-05-12 12:44] LABS: Add Urine Microscopic? YES
--- NOTE | 2025-05-12 12:45 | ECG_ITS ---
[facility] Date: 2025-05-12 Pat Name: Karin Bronson Department: Room: Gender: Female Logistics Coordinator: : 1980 Requested By: Hesham Hernandez Order Number: [id number] Miranda MD: Maggie Pelletier M.D. Measurements Intervals [place] Rate: 93 P: 68 OR: 220 QRS: 61 QRSD: 113 T: 46 QT: 341 QTc: 425 Interpretive Statements SINUS RHYTHM WITH FIRST DEGREE AV BLOCK POSSIBLE LEFT ATRIAL ENLARGEMENT [-0.1mV P-WAVE IN V1/V2] MODERATE INTRAVENTRICULAR CONDUCTION DELAY [110+ ms QRS DURATION] NONSPECIFIC ST ELEVATION [0.05+ mV ST ELEVATION] No previous ECG available for comparison Electronically Signed On 05-13-2025 14:10:17 CDT by Maggie Pelletier M.D. [email or web address]
[2025-05-12 12:50] LABS: Troponin(5th) Baseline 7 ng/L (0-10)
[2025-05-12 12:57] LABS: Alanine Aminotransferase 33 U/L (0-33); Albumin Level 4.5 g/dL (3.5-5.2); Alkaline Phosphatase 125 U/L (35-105); Anion Gap 20.9 (5-19); Aspartate Amino Transferase 24 U/L (0-32); Blood Urea Nitrogen 12 mg/dL (6-20); Calcium 9.4 mg/dL (8.5-10.5); Carbon Dioxide 21 mmol/L (22-29); Chloride 98 mmol/L (98-107); Creatinine Clr Calc Pharmacy 112.8177; Globulin 3.2 g/dL (1.3-4.6); Glucose 128 mg/dL (65-115); NT Pro B Type Natriuretic Pept < 36 pg/mL (0-125); Osmolality Calculated 283 mOsm/kg (285-295); Potassium 3.9 mmol/L (3.5-5.1); Sodium 136 mmol/L (136-145); Total Protein 7.7 g/dL (6.6-8.7)
[2025-05-12 13:57] LABS: Troponin 5 2HR 11.50 ng/L (0-10); Troponin 5 2HR Delta 4.50 ABS# (0-10)
[2025-05-12 14:10] VITALS: BP 113/83; PULSE 89; O2SAT 95
[2025-05-12 14:23] LABS: Respiratory Syncytial Virus Ce NEGATIVE (Negative); SARS-CoV-2 PCR NEGATIVE (Negative)
--- NOTE | 2025-05-12 14:59 | ED_ITS ---
HPI - Chest Pain 2 General: Chief Complaint: Chest Pain Stated Complaint: cp Time Seen by Provider: 05/12/25 11:58 History of Present Illness: 44-year-old female presents to the ED wi th a 2-day history of chest pain and shortness of breath. Patient describes the sensation as feeling like a band wrapped around her chest with difficulty taking deep breaths. She reports associated mid to upper back pain between her shoulder blades, predominantly on the left side. The symptoms have been intermittent, coming and going over the past two days. She also endorses nausea and lightheadedness. Patient denies significant cough or productive sputum. She is a current smoker, reporting she has decreased from 1.5 packs per day to 0.5 packs per day. 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 Patient denies leg pain or swelling. Related Data Home Medications ?Medication ?Instructions ?Recorded ?Confirmed omeprazole 20 mg tablet,delayed 20 mg PO QAM 05/12/25 05/12/25 release Previous Rx's ?Medication ?Instructions ?Recorded albuterol sulfate 90 mcg/actuation 2 inh inhalation QI D PRN shortness 05/12/25 aerosol inhaler (Ventolin HFA) of breath or wheezing # 6.7 grams prednisone 20 mg tablet 20 mg PO BID 5 days #10 tabs 05/12/25 Allergies Allergy/AdvReac Type Severity Reaction Status Date / Time No Known Allergies Allergy Verified 07/13/20 16:15 [facility] ED 2 [facility]: Social History (Updated 07/13/20 @ 16:16 by Erika Paula LPN) Smoking and tobacco/nicotine status: current every day tobacco/nicotine user Alcohol intake: never Substance/Drug Use: never Physical Exam 2 Const: COMMON NORMALS: no acute distress, average body habitus, alert and well nourished GENERAL APPEARANCE: cooperative ORIENTATION/CONSCIOUSNESS: Yes awake HENMT: COMMON NORMALS: normocephalic and atraumatic HEAD & SCALP: n ormocephalic and atraumatic Eye: COMMON NORMALS: conjunctivae normal CONJUNCTIVA: Yes conjunctivae normal Neck/C-Spine: GENERAL: Yes normal visual inspection Resp: COMMON NORMALS: normal respiratory effort, No retractions and No use of accessory muscles AUSCULTATION: wheezes Cardio: COMMON NORMALS: regular rhythm and Peripheral pulses 2+ throughout RHYTHM: regular rhythm PERIPHERAL PULSES: Peripheral pulses 2+ throughout GI: COMMON NORMALS: Soft to palpation and non-tender PALPATION: Yes Soft to palpation Extremity: COMMON NORMALS: full ROM and no pedal edema Neuro: COMMON NORMALS: no focal motor deficits SENSORIUM/ORIENTATION: Yes alert Skin: COMMON NORMALS: no rashes or lesions noted GENERAL SKIN EXAM: no rashes or lesions noted Course 2 Vital Signs: Vital signs: Vital Signs Temperature 98.2 F 05/12/25 11:57 Pulse Rate 89 05/12/25 14:10 Respiratory Rate 18 05/12/25 11:57 Blood Pressure 113/83 05/12/25 14:10 Pulse Oximetry 95 05/12/25 14:10 Oxygen Delivery Me thod Room Air 05/12/25 11:57 MDM - Chest Pain Medical Decision Making ROS: Constitutional: Denies fever. Respiratory: Positive for shortness of breath and chest tightness. Denies significant cough or productive sputum. Cardiovascular: Positive for chest pain described as band-like tightness. Denies leg swelling or pain. Reports history of palpitations described as heart flopping around. Gastrointestinal: Positive for nausea. Neurological: Positive for lightheadedness. All other systems reviewed and negative or noncontributory. MEDICATIONS AND ALLERGIES: - Meds: Omeprazole 20mg daily. Previously prescribed diltiazem PRN (not currently taking). 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 PAST HISTORICAL DATA: - PMH: Congenital heart murmur, history of palpitations requiring Holter monitor in the past. - PSH: None reported. - Social: Current smoker (0.5 PPD, down from 1.5 PPD). 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 - Family History: Not reported. - Previous Cardiology Care: Patient reports previous cardiology evaluation with Holter monitor and PRN diltiazem prescription for palpitations. Previously received care through [facility] in [place] with [facility] for cardiology, but reports clinic is no longer open. VITAL SIGNS: - Pulse: 97 - Blood Pressure: 133/113, repeat 123/81 - Respiratory Rate: 18 - Temperature: 98.2?F - O2 Saturation: 93% on room air - Heart Rate: 86 (on reassessment) INITIAL IMPRESSION AND PLAN: Given the history and presentation, the primary working diagnosis is chest pain with shortness of breath of uncertain etiology. Additional considerations include acute coronary syndrome, pulmonary embolism, COVID-19 infection, reactive airway disease/asthma exacerbation, and anxiety. Based on this initial impression I will order CBC, cardiac enzymes (troponin), D-dimer, BNP, basic metabolic panel, urinalysis, COVID/RSV/influenza testing, and chest X-ray. Will monitor vital signs and reassess after results. TEST INTERPRETATIONS: - CBC: WBC 11.8, Hemoglobin 16 - D-dimer: Normal at 0.41 - Troponin: Initial 7, repeat 11.5 without significant change between the two - BNP: Normal, less than 36 - Glucose: 128 - Urinalysis: Unremarkable - COVID/RSV/Influenza: All negative - Chest X-ray: No acute processes identified PROCEDURES: No procedures were performed during this encounter. CONSIDERED BUT NOT PERFORMED: CT pulmonary angiogram CONSIDERED but NOT DONE due to normal D-dimer result, making pulmonary embolism unlikely. ECG was likely performed but not explicitly mentioned in the well tester. OTC medications/interventions recommended included: None specifically mentioned. FINAL IMPRESSION: Based on all the above, my clinical impression is most compatible with reactive airway disease/bronchospasm with associated chest discomfort. The clinical picture is not currently suggestive of acute coronary syndrome, pulmonary embolism, or COVID-19 infection. Although other conditions were also considered, they were deemed unlikely based on the clinical information available. CLINICAL DISPOSITION: The patient's current condition is stable in my estimation and the most appropriate and indicated disposition at this time is discharge home with medications and follow-up. The patient is safe for discharge home as her vital signs have normalized, diagnostic testing has ruled out life-threatening conditions, and her symptoms are consistent with a mild reactive airway disease exacerbation that can be managed as an outpatient. She demonstrates no respiratory distress, has normal oxygen saturation, and has no concerning cardiac findings. The patient understands discharge instructions and has a plan to obtain her medications. RISK STRATIFICATION AND CLINICAL DECISION RULES APPLIED: PERC Rule - Negative. Patient is 44 years old with normal vital signs, no unilateral leg swelling, no hemoptysis, no recent surgery or trauma, and normal D-dimer. This effectively rules out pulmonary embolism (sensitivity >99%). HEART Score - Low risk (estimated 2-3). Patient has atypical chest pain, normal troponins without significant change, and no concerning ECG changes mentioned. This supports safe discharge with outpatient follow-up. CASE SUMMARY: 44-year-old female smoker with history of heart murmur presented with 2-day history of chest tightness, shortness of breath, back pain, nausea, and lightheadedness. Initial workup included CBC, cardiac enzymes, D-dimer, BNP, basic metabolic panel, urinalysis, respiratory viral panel, and chest X-ray. All results were reassuring with no evidence of acute coronary syndrome, pulmonary embolism, or respiratory infection. Physical exam revealed mild wheezing consistent with reactive airway disease/bronchospasm. Patient was hemodynamically stable throughout her ED stay with improvement in vital signs. Given the clinical presentation and diagnostic results, patient was diagnosed with reactive airway disease exacerbation and discharged home with prescriptions for albuterol and a short course of oral steroids. Patient received first dose of steroids in the ED. Prescriptions were sent to [facility] in [place]. Patient was instructed to follow up with primary care provider early next week and return to the ED for worsening symptoms. Lab Data I reviewed the patient's lab results. 05/12/25 11:10 05/12/25 11:10 Radiology Impressions Chest X-Ray 05/12/25 12:11 IMPRESSION: No acute chest abnormality. Laboratory Results WBC 11.83 10^3/uL (3.29-11.43) H 05/12/25 11:10 RBC 5.35 10^6/uL (3.85-5.65) 05/12/25 11:10 Hgb 16.00 g/dL (11.27-16.99) 05/12/25 11:10 Hct 47.6 % (36-47) H 05/12/25 11:10 MCV 89.0 fl (85-98) 05/12/25 11:10 MCH 29.9 pg (27-33) 05/12/25 11:10 MCHC 33.6 g/dL (30-55) 05/12/25 11:10 RDW 13.2 % (12.1-15.1) 05/12/25 11:10 Plt Count 393 10^3/cmm (157-399) 05/12/25 11:10 MPV 10.2 fL (7.4-10.4) 05/12/25 11:10 Neut % (Auto) 59.7 % 05/12/25 11:10 Lymph % (Auto) 28.8 % 05/12/25 11:10 [place] % (Auto) 8.1 % 05/12/25 11:10 Eos % (Auto) 2.1 % 05/12/25 11:10 Baso % (Auto) 0.9 % 05/12/25 11:10 Neut # (Auto) 7.05 10^3/uL (1.8-7.7) 05/12/25 11:10 Lymph # (Auto) 3.4 10^3/uL (0.8-4.8) 05/12/25 11:10 [place] # (Auto) 1.0 10^3/uL (0.2-0.9) H 05/12/25 11:10 Eos # (Auto) 0.3 10^3/uL (0.0-0.8) 05/12/25 11:10 Baso # (Auto) 0.1 10^3/uL (0.0-0.1) 05/12/25 11:10 Nucleated RBC % (auto) 0 % 05/12/25 11:10 Nucleated RBCs # 0.0 /100WBC 05/12/25 11:10 D-Dimer 0.41 ug/mLFEU (0-0.59) 05/12/25 13:33 Sodium 136 mmol/L (136-145) 05/12/25 11:10 Potassium 3.9 mmol/L (3.5-5.1) 05/12/25 11:10 Chloride 98 mmol/L (98-107) 05/12/25 11:10 Carbon Dioxide 21 mmol/L (22-29) L 05/12/25 11:10 Anion Gap 20.9 (5-19) H 05/12/25 11:10 BUN 12 mg/dL (6-20) 05/12/25 11:10 Creatinine 0.8 mg/dL (0.5-0.9) 05/12/25 11:10 GFR Calculation 77.9 mL/min (90-130) L 05/12/25 11:10 Glucose 128 mg/dL (65-115) H 05/12/25 11:10 Calculated Osmolality 283 mOsm/kg (285-295) L 05/12/25 11:10 Calcium 9.4 mg/dL (8.5-10.5) 05/12/25 11:10 Total Bilirubin 0.3 mg/dL (0.15-1.2) 05/12/25 11:10 AST 24 U/L (0-32) 05/12/25 11:10 ALT 33 U/L (0-33) 05/12/25 11:10 Alkaline Phosphatase 125 U/L (35-105) H 05/12/25 11:10 Troponin T Baseline 7 ng/L (0-10) 05/12/25 11:10 Troponin T 120 Minute 11.50 ng/L (0-10) H 05/12/25 13:33 Delta Troponin T 4.50 ABS# (0-10) 05/12/25 13:33 NT-Pro-B Natriuret Pep < 36 pg/mL (0-125) 05/12/25 11:10 Total Protein 7.7 g/dL (6.6-8.7) 05/12/25 11:10 Albumin 4.5 g/dL (3.5-5.2) 05/12/25 11:10 Globulin 3.2 g/dL (1.3-4.6) 05/12/25 11:10 HCG, Qual Negative (Negative) 05/12/25 12:14 Urine Color Yellow (Yellow) 05/12/25 12:14 Urine Appearance Clear (CLEAR) 05/12/25 12:14 Urine pH 6.5 (5-7) 05/12/25 12:14 Ur Specific [place] 1.007 (1.005-1.030) 05/12/25 12:14 Urine Protein Negative (Negative) 05/12/25 12:14 Urine Glucose (UA) Negative (Normal) 05/12/25 12:14 Urine Ketones Negative (Negative) 05/12/25 12:14 Urine Blood Negative (Negative) 05/12/25 12:14 Urine Nitrate Negative (Negative) 05/12/25 12:14 Urine Bilirubin Negative (Negative) 05/12/25 12:14 Urine Urobilinogen 0.2 mg/dL (Negative) 05/12/25 12:14 Ur Leukocyte Esterase Negative (Negative) 05/12/25 12:14 Urine RBC 0-2 /hpf (0-2) 05/12/25 12:14 Urine WBC 0-5 /hpf (0-5) 05/12/25 12:14 Ur Squamous Epith Cells 0-5 /hpf (0-5) 05/12/25 12:14 Amorphous Sediment Not Reportable 05/12/25 12:14 Urine Bacteria None seen /hpf (NONE) 05/12/25 12:14 Hyaline Casts 0.81 /lpf 05/12/25 12:14 Influenza A (PCR) Negative (Negative) 05/12/25 13:36 Influenza Type B (PCR) Negative (Negative) 05/12/25 13:36 RSV (PCR) Negative (Negative) 05/12/25 13:36 SARS-CoV-2 (PCR) Negative (Negative) 05/12/25 13:36 All radiology interpretation(s) finalized by discharge Discharge Plan Discharge Patient Disposition: Home Clinical Impression: Chest pain, Expiratory wheezing Condition: Stable Prescriptions: New prednisone 20 mg tablet 20 mg PO BID 5 Days Qty: 10 0RF albuterol sulfate [Ventolin HFA] 90 mcg/actuation HFA aerosol inhaler 2 inh inhalation QID PRN (Reason: shortness of breath or wheezing) Qty: 6.7 0RF No Action omeprazole 20 mg Tablet,Delayed Release (Dr/Ec) 20 mg PO QAM Discharge Orders: Discharge ED (Routine); Ordered 05/12/25 Ordered By: Hesham Hernandez Referrals: Art Deng FNP [Primary Care Provider, [facility]] Discharge Activity: Increase activity as tolerated Patient Instructions: Chest Pain (ED), Wheezing (ED), Patient Portal & Felipe Instructions Activity Restrictions/Additional Instructions: MEDICATIONS: 1. Albuterol inhaler: Use 2 puffs every 4-6 hours as needed for shortness of breath or wheezing 2. Prednisone: Take as prescribed for 5 days to reduce airway inflammation HOME CARE INSTRUCTIONS: 1. Rest as needed and stay well-hydrated 2. Avoid smoking and secondhand smoke 3. Avoid known triggers that may worsen breathing 4. Use your albuterol inhaler as prescribed for relief of symptoms FOLLOW-UP: 1. Follow up with your primary care provider early next week 2. Consider establishing care with a primary care provider if you don't currently have one RETURN TO THE EMERGENCY DEPARTMENT IF: 1. Worsening shortness of breath or difficulty breathing 2. Chest pain that is severe or different from what you experienced today 3. Inability to speak in full sentences due to breathing difficulty 4. Lips or fingernails turning blue 5. Feeling confused or extremely fatigued 6. Any other concerning symptoms develop Print Language: Kazakh Coding Level of Care Code ED Duplex Trimmer for Ricky Vigil
--- NOTE | 2025-05-12 15:09 | ECG_ITS ---
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
[2025-05-12 15:20] VITALS: BP 119/85; PULSE 85; O2SAT 95
== END 2025-05-12 15:25 | disposition home or self-care (01) ==
PROVIDERS: Emergency Provider Student in an Organized Health Care Education/Training Program; PCP Nurse Practitioner Family
DX: R07.9 Chest pain, unspecified (principal); R06.2 Wheezing; Z11.52 Encounter for screening for COVID-19; Z72.0 Tobacco use
CPT/HCPCS: 36415; 71045; 80053; 81001; 81025; 83880; 84484; 85025; 85378; 87637; 93005; 96374; 99285; J1100

== ENCOUNTER 2025-05-19 12:27 | Emergency (ER) | payer SELFPAY ==
--- NOTE | 2025-05-19 12:33 | XRR_ITS ---
PROCEDURE INFORMATION: Exam: XR Chest Exam date and time: 05/19/2025 3:58 PM Age: 44 years old Clinical indication: Pain; Angina pectoris; Additional info: Chest pain TECHNIQUE: Imaging protocol: Radiologic exam of the chest. Views: 1 view. COMPARISON: CR XR chest 1V portable [id number] 05/12/2025 12:15 PM FINDINGS: Lungs: Mild atelectasis in the left lung base. The right lung is clear. No consolidation. Pleural spaces: Unremarkable. No pleural effusion. No pneumothorax. Heart/Mediastinum: Unremarkable. No cardiomegaly. Bones/joints: Unremarkable. XR/XR chest 1V portable [id number] IMPRESSION: No acute findings.
--- OUTSIDE RECORDS SUMMARY | 2025-05-19 12:33 | XMS_ITS | Encounter Summary ---
Author Organization [facility] Address [address] [place] [address] Care Team Providers Care Compressor House Operator Name Role Phone Gerardo Kingsley DO Primary Care Provider Unavaila ble Encounter Details Date Type Department Care Team (Late st Contact Info) Description 08/03/2017 Lab Requisition [facility] General Laboratory Services [place] [address] [place] [id number] Gerardo Kingsley DO NO ADDRESS ON FILE [...] - 145 mmol/L 08/03/2017 11:51 PM CDT [facility] POTASSIUM 4.1 3.5 - 5.1 mmol/L 08/03/2017 11:51 PM CDT [facility] CHLORIDE 101 98 - 107 mmol/L 08/03/2017 11:51 PM CDT [facility] CO2 23 22 - 29 mmol/L 08/03/2017 11:51 PM [facility] CALCIUM 9.3 8.6 - 10.0 mg/dL 08/03/2017 11:51 PM [facility] BUN 17 6 - 20 mg/dL 08/03/2017 11:51 PM [facility] CREATININE 0.70 0.51 - 0.95 mg/dL 08/03/2017 11:51 PM [facility] GLUCOSE 104 74 - 106 mg/dL 08/03/2017 11:51 PM [facility] GFR >60 >=60 mL/min/1.7 3 sq meter 08/03/2017 11:51 PM [facility] Comment: eGFR has not been validated [...] 3 sq meter 08/03/2017 11:51 PM T [facility] ANION GAP 14 12 - 20 mmol/L 08/03/2017 11:51 PM [facility] Blood 08/03/2017 9:52 PM CDT 08/03/2017 11:01 PM CDT us Gerardo Kingsley DO CHEMISTRY ORDERABLES Final Resu lt [facility] CLIA # [id number] [address] [place] [id number] * (ABNORMAL) CBC WITH DIFFERENTIAL (08/03/2017 9:52 PM CDT) WBC 9.7 4.0 - 10.0 K/uL 08/03/2017 11:36 PM [facility] RBC 4.42 3.93 - 5.22 M/uL 08/03/2017 11:36 PM [facility] HEMOGLOBIN 13.5 11.2 - 15.7 g/dL 08/03/2017 11:36 PM [facility] HEMATOCRIT 41.4 34.1 - 44.9 % 08/03/2017 11:36 PM [facility] MCV 93.7 79.4 - 94.8 fL 08/03/2017 11:36 PM [facility] MCH 30.5 25.6 - 32.2 pg 08/03/2017 11:36 PM [facility] MCHC 32.6 32.2 - 35.5 g/dL 08/03/2017 11:36 PM [facility] RDW 13.4 11.0 - 14.5 % 08/03/2017 11:36 PM [facility] RDW-STDEV 44.2 36.9 - 56.9 fL 08/03/2017 11:36 PM [facility] PLATELETS 329 163 - 337 K/uL 08/03/2017 11:36 PM [facility] MPV 10.7 10.0 - 14.8 fL 08/03/2017 11:36 PM [facility] NEUTROPHILS 55 34 - 71 % 08/03/2017 11:36 PM [facility] LYMPHOCYTES 30 19 - 52 % 08/03/2017 11:36 PM [facility] MONOCYTES 9 5 - 13 % 08/03/2017 11:36 PM [facility] EOSINOPHILS 6 1 - 6 % 08/03/2017 11:36 PM [facility] BASOPHILS 1 0 - 1 % 08/03/2017 11:36 PM [facility] IMMATURE GRANULOCYTES 0 % 08/03/2017 11:36 PM [facility] NEUTROPHIL ABSOLUTE 5.32 1.56 - 6.13 K/uL 08/03/2017 11:36 PM CDT [facility] LYMPHOCYTE ABSOLUTE 2.93 1.20 - 3.40 K/uL 08/03/2017 11:36 PM CDT [facility] MONOCYTE ABSOLUTE 0.83(H) 0.24 - 0.36 K/uL 08/03/2017 11:36 PM CDT [facility] EOSINOPHIL ABSOLUTE 0.54(H) 0.04 - 0.36 K/uL 08/03/2017 11:36 PM CDT [facility] BASOPHILS ABSOLUTE 0.06 0.01 - 0.08 K/uL 08/03/2017 11:36 PM CDT [facility] IMMATURE GRANULOCYTES ABSOLUTE 0.02 K/uL 08/03/2017 11:36 PM T [facility] Blood 08/03/2017 9:52 PM CDT 08/03/2017 11:01 PM CDT us Gerardo Kingsley DO HEMATOLOGY ORDERABLES Final Res ult [facility] CLIA # [id number] [address] [place] [address] * SEDIMENTATION RATE (08/03/2017 9:52 PM CDT) ESR (SEDIMENTATION RATE) 8 0 - 20 mm/Hr 08/04/2017 12:56 AM CDT [facility] Blood 08/03/2017 9:52 PM CDT 08/03/2017 11:01 PM CDT us Gerardo Kingsley DO HEMATOLOGY ORDERABLES Final Res ult [facility] CLIA # [id number] [address] [place] [id number] documented in this encounter Visit Diagnoses Not on filedocumented in this encounter Care Teams Compressor House Operator Relationship Specialty Start Date End Date Gerardo Kingsley DO PCP - General Family Practice 12/21/18 documented as of this encounter
--- OUTSIDE RECORDS SUMMARY | 2025-05-19 12:33 | XMS_ITS | Encounter Summary ---
Author Organization [facility] Address [address] [place] [address] Care Team Providers Care Multifold Operator Name Role Phone Gerardo Kingsley DO Primary Care Provider Unavaila ble Encounter Details Date Type Department Care Team (Late st Contact Info) Description 12/14/2017 Lab Requisition [facility] General Laboratory Services [place] [address] [place] [phone] Gerardo Kingsley DO NO ADDRESS ON FILE [...] Diagnosis Comments TROPONIN Routine 12/14/2017 8:40 PM HOSPITAL TECHNICIAN TSH Routine 12/14/2017 8:40 PM HOSPITAL TECHNICIAN COMPREHENSIVE METABOLIC PANEL Routine 12/14/2017 8:40 PM HOSPITAL TECHNICIAN documented in this encounter Results * COMPREHENSIVE METABOLIC PANEL (12/14/2017 8:40 PM HOSPITAL TECHNICIAN) SODIUM 139 136 - 145 mmol/L 12/14/2017 11:36 PM HOSPITAL TECHNICIAN [facility] POTASSIUM 3.6 3.5 - 5.1 mmol/L 12/14/2017 11:36 PM HOSPITAL TECHNICIAN [facility] CHLORIDE 99 98 - 107 mmol/L 12/14/2017 11:36 PM [facility] CO2 26 22 - 29 mmol/L 12/14/2017 11:36 PM [facility] CALCIUM 9.6 8.6 - 10.0 mg/dL 12/14/2017 11:36 PM [facility] BUN 12 6 - 20 mg/dL 12/14/2017 11:36 PM [facility] CREATININE 0.76 0.51 - 0.95 mg/dL 12/14/2017 11:36 PM [facility] GLUCOSE 79 74 - 106 mg/dL 12/14/2017 11:36 PM [facility] TOTAL PROTEIN 7.4 6.6 - 8.7 g/dL 12/14/2017 11:36 PM [facility] ALBUMIN 4.5 3.5 - 5.2 g/dL 12/14/2017 11:36 PM [facility] BILIRUBIN TOTAL 0.2 0.0 - 1.2 mg/dL 12/14/2017 11:36 PM [facility] ALKALINE PHOSPHATASE 75 35 - 104 U/L 12/14/2017 11:36 PM [facility] AST 15 10 - 35 U/L 12/14/2017 11:36 PM [facility] ALT 14 10 - 35 U/L 12/14/2017 11:36 PM [facility] GFR >60 >=60 mL/min/1.7 3 sq meter 12/14/2017 11:36 PM [facility] Comment: eGFR has not been validated for [...] mL/min/1.7 3 sq meter 12/14/2017 11:36 PM [facility] ANION GAP 14 12 - 20 mmol/L 12/14/2017 11:36 PM HOSPITAL TECHNICIAN [facility] Blood Venipuncture / Unknown 12/14/2017 8:40 PM HOSPITAL TECHNICIAN 12/14/2017 10:56 PM HOSPITAL TECHNICIAN us Gerardo Kingsley DO CHEMISTRY ORDERABLES Final Resu lt Performing Organization Address City/[facility]/ZIP Co de Phone Number [facility] CLIA # [id number] [address] [place] [address] * TSH (12/14/2017 8:40 PM HOSPITAL TECHNICIAN) TSH 2.62 0.27 - 4.20 uIU/mL 12/14/2017 11:36 PM HOSPITAL TECHNICIAN [facility] Blood Venipuncture / Unknown 12/14/2017 8:40 PM HOSPITAL TECHNICIAN 12/14/2017 10:56 PM HOSPITAL TECHNICIAN us Gerardo Kingsley DO CHEMISTRY ORDERABLES Final Resu lt Performing Organization Address [facility]/ZIP Co de Phone Number [facility] CLIA # [id number] [address] [place] [id number] * TROPONIN (12/14/2017 8:40 PM HOSPITAL TECHNICIAN) TROPONIN T <0.01 <=0.01 ng/mL 12/14/2017 11:36 PM HOSPITAL TECHNICIAN [facility] Blood Venipuncture / Unknown 12/14/2017 8:40 PM HOSPITAL TECHNICIAN 12/14/2017 10:56 PM HOSPITAL TECHNICIAN us Gerardo Kingsley DO CHEMISTRY ORDERABLES Final Resu lt Performing Organization Address [facility]/ZIP Co de Phone Number [facility] CLIA # [id number] [address] [place] [id number] documented in this encounter Visit Diagnoses Not on filedocumented in this encounter Care Teams Multifold Operator Relationship Specialty Start Date End Date Gerardo Kingsley, PCP - General Family Practice 2/26/19 documented as of this encounter
--- OUTSIDE RECORDS SUMMARY | 2025-05-19 12:33 | XMS_ITS | Encounter Summary ---
Author Organization [facility] Address [address] [place] [address] Care Team Providers Care Data Processing Specialist Name Role Phone Gerardo Kingsley DO Primary Care Provider Unavaila ble Encounter Details Date Type Department Care Team (Late st Contact Info) Description 03/29/2018 Lab Requisition [facility] Laboratory Services [place] [address] [place] [phone] Ryan Nieto, PA [address] [place] [address] Social History Tobacco Use Types [...] 7.22(H) <0.35 kU/L 04/02/2018 3:56 PM CDT [facility] BEEF CLASS 3 04/02/2018 3:56 PM CDT [facility] ALLERGEN LESLIE/MUTTON, IGE 2.77(H) <0.35 kU/L 04/02/2018 3:56 PM CDT [facility] LESLIE/MUTTON CLASS 2 018 3:56 PM CDT [facility] ALLERGEN PORK, IGE 3.44(H) <0.35 kU/L 04/02/2018 3:56 PM CDT [facility] PORK CLASS 2 04/02/2018 3:56 PM CDT [facility] Comment: The test method is the Modulus Video ImmunoCAP allergen-specific IgE system. CLASS INTERPRETATION <0.10 [...] developed and its performance characteristics determined by [employer]. It has not been cleared or approved by the U.S. Food and Drug Administration. GALACTOSE - ALPHA -1, 3 - GALACTOSE, IGE 11.90(H) <0.35 kU/L 04/02/2018 3:56 PM CDT [facility] Comment: Previous reports (JUANY 2009;123:426-433) have demonstrated that patients with IgE antibodies to xeularzya-l-6,3-galactose are at risk for delayed anaphylaxis, angioedema, or urticaria following consumption of beef, pork, or leslie. Test Performed by: [facility], Interface [address] [place] [address] Blood Collection / Unknown 03/29/2018 8:00 PM CDT 03/29/2018 10:29 PM CDT us Ryan [place] CHEMISTRY ORDERABLES Final R esult [facility] documented in this encounter Visit Diagnoses Not on filedocumented in this encounter Care Teams Data Processing Specialist Relationship Specialty Start Date End Date Gerardo Kingsley DO PCP - General Family Practice 12/21/18 documented as of this encounter
--- OUTSIDE RECORDS SUMMARY | 2025-05-19 12:34 | XMS_ITS | Encounter Summary ---
Author Organization [facility] Address [address] [place] [address] Care Team Providers Care Laborer Concrete Plant Name Role Phone Gerardo Kingsley DO Primary Care Provider Unavaila ble Encounter Details Date Type Department Care Team (Late st Contact Info) Description 03/27/2015 Lab Requisition [facility] Laboratory Services [place] [address] [place] [phone] Gerardo Kingsley DO NO ADDRESS ON FILE [...] MANUAL DIFFERENTIAL (03/26/2015 6:00 PM CDT) Pathologist [facility] ADJUSTED WBC 11.3 K/uL 03/27/2015 10:23 AM T [facility] SEGMENTED NEUTROPHILS 65 45 - 70 % 03/27/2015 10:23 AM T [facility] LYMPHOCYTES RELATIVE 30 20 - 45 % 03/27/2015 10:23 AM T [facility] MONOCYTES RELATIVE 5 2 - 8 % 03/27/2015 10:23 AM T [facility] PLATELET EST. Consistent with Count 03/27/2015 10:23 AM T [facility] NEUTROPHILS ABSOLUTE COUNT 7.35(H) 1.78 - 5.38 K/uL 03/27/2015 10:23 AM T [facility] LYMPHOCYTES ABSOLUTE 3.39 1.20 - 4.00 K/uL 03/27/2015 10:23 AM T [facility] MONOCYTES ABSOLUTE 0.57 0.30 - 0.82 K/uL 03/27/2015 10:23 AM T [facility] TOTAL CELLS COUNTED IN DIFF 100 03/27/2015 10:23 AM T [facility] RBC MORPHOLOGY Normal 03/27/2015 10:23 AM [facility] Blood Venipuncture - L ab Collect / Unknown 03/26/2015 6:00 PM CDT 03/27/2015 10:02 AM CDT us Gerardo Kingsley DO HEMATOLOGY ORDERABLES COM Final Result [facility] [place] CLIA # [id number] [address] [place] [address] * TSH (03/26/2015 6:00 PM CDT) Pathologist [facility] TSH 3.73 0.30 - 4.80 uIU/mL 03/27/2015 10:34 AM T [facility] [employer] Blood Venipuncture - L ab Collect / Unknown 03/26/2015 6:00 PM CDT 03/27/2015 10:02 AM CDT us Gerardo Kingsley DO CHEMISTRY ORDERABLES Final Resu lt [facility] [place] VICKIE # [id number] [address] [place] [address] * (ABNORMAL) COMPREHENSIVE METABOLIC PANEL (03/26/2015 6:00 PM CDT) SODIUM 139 136 - 145 mmol/L 03/27/2015 10:34 AM CDT [facility] [place] POTASSIUM 3.8 3.5 - 5.1 mmol/L 03/27/2015 10:34 AM CDT [facility] [place] CHLORIDE 101 98 - 107 mmol/L 03/27/2015 10:34 AM CDT [facility] [place] CO2 29 21 - 32 mmol/L 03/27/2015 10:34 AM CDT [facility] [place] CALCIUM 8.9 8.5 - 10.1 mg/dL 03/27/2015 10:34 AM T [facility] [place] BUN 11 7 - 18 mg/dL 03/27/2015 10:34 AM CDT [facility] [place] CREATININE 0.86 0.60 - 1.30 mg/dL 03/27/2015 10:34 AM T [facility] [place] GLUCOSE 78 74 - 106 mg/dL 03/27/2015 10:34 AM T [facility] [place] TOTAL PROTEIN 8.1 6.4 - 8.2 g/dL 03/27/2015 10:34 AM T [facility] [place] ALBUMIN 4.4 3.4 - 5.0 g/dL 03/27/2015 10:34 AM CDT [facility] [place] BILIRUBIN TOTAL 0.2 0.2 - 1.0 mg/dL 03/27/2015 10:34 AM CDT [facility] [place] ALKALINE PHOSPHATASE 80 46 - 116 U/L 03/27/2015 10:34 AM CDT [facility] [place] AST 17 15 - 37 U/L 03/27/2015 10:34 AM CDT [facility] [place] ALT 22(L) 30 - 65 U/L 03/27/2015 10:34 AM CDT [facility] GFR >60 >=60 mL/min/1.7 3 sq meter 03/27/2015 10:34 AM [facility] Comment: eGFR has not been validated [...] 3 sq meter 03/27/2015 10:34 AM T [facility] ANION GAP 9(L) 12 - 20 mmol/L 03/27/2015 10:34 AM [facility] Blood Venipuncture - L ab Collect / Unknown 03/26/2015 6:00 PM CDT 03/27/2015 10:02 AM CDT Narrative [facility] - 03/27/2015 10:34 AM CDT Effective 06/29/2014, the Alkaline Phosphatase test method and reference range have changed. Please take this into consideration when interpreting results prior to or after this date. us Gerardo Kingsley DO CHEMISTRY ORDERABLES Final Resu lt [facility] [id number] [address] [place] [address] * (ABNORMAL) CBC WITH DIFFERENTIAL (03/26/2015 6:00 PM CDT) WBC 11.3(H) 4.0 - 10.0 K/uL 03/27/2015 10:08 AM T [facility] RBC 5.06 3.93 - 5.22 M/uL 03/27/2015 10:08 AM [facility] HEMOGLOBIN 15.9(H) 11.2 - 15.7 g/dL 03/27/2015 10:08 AM CDT [facility] [place] HEMATOCRIT 46.5(H) 34.1 - 44.9 % 03/27/2015 10:08 AM CDT [facility] [place] MCV 91.9 79.4 - 94.8 fL 03/27/2015 10:08 AM CDT [facility] LABORATORY [facility] MCH 31.4 25.6 - 32.2 pg 03/27/2015 10:08 AM CDT [facility] [place] MCHC 34.2 32.2 - 35.5 g/dL 03/27/2015 10:08 AM CDT [facility] LABORATORY [facility] RDW 13.2 11.0 - 14.5 % 03/27/2015 10:08 AM T [facility] LABORATORY [facility] [place] RDW-STDEV 43.4 36.9 - 56.9 fL 03/27/2015 10:08 AM CDT [facility]ORAT[facility] [place] PLATELETS 290 163 - 337 K/uL 03/27/2015 10:08 AM CDT [facility] LABORAT[facility] [place] MPV 11.0 10.0 - 14.8 fL 03/27/2015 10:08 AM T [facility] LABORAT[facility] [place] [facility] Blood Venipuncture - L ab Collect / Unknown 03/26/2015 6:00 PM CDT 03/27/2015 10:02 AM CDT us Gerardo Kingsley DO HEMATOLOGY ORDERABLES Final Res ult [facility] [place] CLIA # [id number] [address] [place] [phone] documented in this encounter Visit Diagnoses Diagnosis Sick Other unknown and unspecified cause of morbidity or mortality documented in this encounter Care Teams Laborer Concrete Plant Relationship Specialty Start Date End Date Gerardo Kingsley DO PCP - General Family Practice 12/21/18 documented as of this encounter
--- OUTSIDE RECORDS SUMMARY | 2025-05-19 12:34 | XMS_ITS | Encounter Summary ---
Author Organization [employer] Address [address] [place] [address] Care Team Providers Care Universal Grinder Operator Name Role Phone Gerardo Kingsley DO Primary Care Provider Unavaila ble Encounter Details Date Type Department Care Team (Late st Contact Info) Description 07/16/2021 Lab Requisition [facility] Laboratory Services [place] [address] [place] [address] Jerzy Barnard MD [address] [place] [phone] Social History Tobacco Use Types Packs/Day Years Used Date Smoking Tobacco: Every Day Cigarettes Smokeless Tobacco: Never Alcohol Use Standard Drinks/Week Comments No 0 (1 standard drink = 0.6 oz pur e alcohol) Comments Unknown Sex and Gender Information Value Date Recorded Sex Assigned at Not on file Legal Sex Female 3:49 AM 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 COMMODITY 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 Gender Identity Not on file Sexual [...] B12 LEVEL (07/16/2021 6:53 AM CDT) Pathologist [facility] VITAMIN B12 385 211 - 946 pg/mL 07/16/2021 11:46 PM CDT [facility] Blood 07/16/2021 6:53 AM CDT 07/16/2021 6:53 AM CDT Jerzy Barnard MD CHEMISTRY ORDERABLES Fi nal Result Performing Organization Address [facility]/ZIP Co de Phone Number [facility] CLIA # [id number] [address] [place] [address] * (ABNORMAL) TSH (07/15/2021 6:53 AM CDT) [facility] TSH 4.70(H) 0.27 - 4.20 uIU/mL 07/16/2021 7:57 AM CDT [facility] Blood 07/15/2021 6:53 AM CDT 07/16/2021 6:53 AM CDT us Jerzy Barnard MD CHEMISTRY ORDERABLES Fi nal Result [facility] CLIA # [id number] [address] [place] [address] * IRON, TIBC, AND PERCENT SATURATION (07/15/2021 6:53 AM CDT) Pathologist [facility] IRON 67 37 - 145 ug/dL 07/16/2021 11:36 PM CDT [facility] TIBC 303 250 - 450 ug/dL 07/16/2021 11:36 PM CDT [facility] IRON % SATURATION 22 15 - 60 % 07/16/2021 11:36 PM CDT [facility] LABORATORY [facility] Blood Collection / Unknown 07/15/2021 6:53 AM CDT 07/16/2021 6:53 AM CDT Jerzy Barnard MD CHEMISTRY ORDERABLES Fi nal Result Performing Organization Address [facility] Co de Phone Number [facility] CLIA # [id number] [address] [place] [address] * FOLATE, SERUM (07/15/2021 6:53 AM CDT) [facility] FOLATE, SERUM 3.7 3.1 - 17.5 ng/mL 07/16/2021 11:58 PM CDT [facility] Blood Collection / Unknown 07/15/2021 6:53 AM CDT 07/16/2021 6:53 AM CDT Jerzy Barnard MD CHEMISTRY ORDERABLES Fi nal Result Performing Organization Address City/[facility] Co de Phone Number [facility] CLIA # [id number] [address] [place] [address] [phone] * (ABNORMAL) COMPREHENSIVE METABOLIC PANEL (07/15/2021 6:53 AM CDT) [facility] SODIUM 139 136 - 145 mmol/L 07/16/2021 7:57 AM CDT [facility] POTASSIUM 3.3(L) 3.5 - 5.1 mmol/L 07/16/2021 7:57 AM CDT [facility] CHLORIDE 101 98 - 107 mmol/L 07/16/2021 7:57 AM CDT [facility] CO2 24 22 - 29 mmol/L 07/16/2021 7:57 AM CDT [facility] CALCIUM 9.3 8.6 - 10.0 mg/dL 07/16/2021 7:57 AM [facility] BUN 8 6 - 20 mg/dL 07/16/2021 7:57 AM [facility] CREATININE 0.73 0.51 - 0.95 mg/dL 07/16/2021 7:57 AM [facility] GLUCOSE 84 74 - 99 mg/dL 07/16/2021 7:57 AM [facility] TOTAL PROTEIN 7.4 6.6 - 8.7 g/dL 07/16/2021 7:57 AM [facility] ALBUMIN 4.4 3.5 - 5.2 g/dL 07/16/2021 7:57 AM [facility] BILIRUBIN TOTAL 0.2 <=1.2 mg/dL 07/16/2021 7:57 AM [facility] ALKALINE PHOSPHATASE 100 35 - 104 U/L 07/16/2021 7:57 AM [facility] AST 18 10 - 35 U/L 07/16/2021 7:57 AM [facility] ALT 17 10 - 35 U/L 07/16/2021 7:57 AM [facility] GFR >60 mL/min/1.7 3 sq meter 07/16/2021 7:57 AM [facility] Comment: eGFR has not been validated for [...] mL/min/1.7 3 sq meter 07/16/2021 7:57 AM [facility] ANION GAP 14 12 - 20 mmol/L 07/16/2021 7:57 AM [facility] Blood 07/15/2021 6:53 AM CDT 07/16/2021 6:53 AM CDT us Jerzy Barnard MD CHEMISTRY ORDERABLES Fi nal Result [facility] VICKIE # [id number] [address] [place] [address] * (ABNORMAL) CBC WITH DIFFERENTIAL (07/15/2021 6:53 AM CDT) WBC 10.2(H) 4.0 - 10.0 K/uL 07/16/2021 7:39 AM [facility] RBC 4.65 3.93 - 5.22 M/uL 07/16/2021 7:39 AM [facility] HEMOGLOBIN 14.2 11.2 - 15.7 g/dL 07/16/2021 7:39 AM [facility] HEMATOCRIT 42.0 34.1 - 44.9 % 07/16/2021 7:39 AM [facility] MCV 90.3 79.4 - 94.8 fL 07/16/2021 7:39 AM [facility] MCH 30.5 25.6 - 32.2 pg 07/16/2021 7:39 AM [facility] MCHC 33.8 32.2 - 35.5 g/dL 07/16/2021 7:39 AM [facility] RDW 12.1 11.0 - 14.5 % 07/16/2021 7:39 AM [facility] RDW-STDEV 40.3 36.9 - 56.9 fL 07/16/2021 7:39 AM [facility] PLATELETS 400(H) 163 - 337 K/uL 07/16/2021 7:39 AM [facility] MPV 10.0 10.0 - 14.8 fL 07/16/2021 7:39 AM [facility] NEUTROPHILS 52 34 - 71 % 07/16/2021 7:39 AM [facility] LYMPHOCYTES 37 19 - 52 % 07/16/2021 7:39 AM [facility] MONOCYTES 7 5 - 13 % 07/16/2021 7:39 AM [facility] EOSINOPHILS 3 1 - 6 % 07/16/2021 7:39 AM [facility] BASOPHILS 1 0 - 1 % 07/16/2021 7:39 AM [facility] IMMATURE GRANULOCYTES 0 % 07/16/2021 7:39 AM [facility] NEUTROPHIL ABSOLUTE 5.34 1.56 - 6.13 K/uL 07/16/2021 7:39 AM [facility] LYMPHOCYTE ABSOLUTE 3.80(H) 1.20 - 3.40 K/uL 07/16/2021 7:39 AM [facility] MONOCYTE ABSOLUTE 0.69(H) 0.24 - 0.36 K/uL 07/16/2021 7:39 AM [facility] EOSINOPHIL ABSOLUTE 0.28 0.04 - 0.36 K/uL 07/16/2021 7:39 AM [facility] BASOPHILS ABSOLUTE 0.08 0.01 - 0.08 K/uL 07/16/2021 7:39 AM [facility] IMMATURE GRANULOCYTES ABSOLUTE 0.02 K/uL 07/16/2021 7:39 AM [facility] Blood 07/15/2021 6:53 AM CDT 07/16/2021 6:53 AM CDT Jerzy Barnard MD HEMATOLOGY ORDERABLES F inal Result [facility] CLIA # [id number] [address] [place] [address] documented in this encounter Visit Diagnoses Not on filedocumented in this encounter Care Teams Universal Grinder Operator Relationship Specialty Start Date End Date Gerardo Kingsley DO PCP - General 01/22/21 06/02/22 documented as of this encounter
--- OUTSIDE RECORDS SUMMARY | 2025-05-19 12:34 | XMS_ITS | Encounter Summary ---
Author Organization [facility] Address [address] [place] [address] Care Team Providers Care Outpatient Surgery Rn Name Role Phone Gerardo Kingsley DO Primary Care Provider Unavaila ble Encounter Details Date Type Department Care Team (Late st Contact Info) Description 04/16/2015 Lab Requisition [facility] Laboratory Services [place] [address] [place] [phone] Jamaica Kimble, COMMODITY LOAN CLERK [address] [place] [phone] Social History Tobacco Use Types Packs/Day Years [...] - 70 % 04/16/2015 10:48 PM CDT [facility] [place] LYMPHOCYTES RELATIVE 24 20 - 45 % 04/16/2015 10:48 PM CDT [facility] [place] MONOCYTES RELATIVE 6 2 - 8 % 04/16/2015 10:48 PM CDT [facility] [place] EOSINOPHILS RELATIVE 3 0 - 5 % 04/16/2015 10:48 PM CDT [facility] [place] NEUTROPHILS ABSOLUTE COUNT 9.05(H) 1.78 - 5.38 K/uL 04/16/2015 10:48 PM CDT [facility] [place] LYMPHOCYTES ABSOLUTE 3.24 1.20 - 4.00 K/uL 04/16/2015 10:48 PM CDT [facility] [place] MONOCYTES ABSOLUTE 0.81 0.30 - 0.82 K/uL 04/16/2015 10:48 PM CDT [facility] LABORATORY [facility] [place] EOSINOPHILS ABSOLUTE 0.41 0.04 - 0.54 K/uL 04/16/2015 10:48 PM CDT [facility] [place] TOTAL CELLS COUNTED IN DIFF 100 04/16/2015 10:48 PM CDT [facility] [place] PLATELET EST. Consistent with Count 04/16/2015 10:48 PM T [facility] [email or web address] [facility] [place] RBC MORPHOLOGY Normal 04/16/2015 10:48 PM T [facility] [email or web address] [facility] [place] Blood 04/16/2015 9:52 PM CDT 04/16/2015 9:52 PM CDT Jamaica Kimble COMMODITY LOAN CLERK HEMATOLOGY ORDERABLES COM Final Result [facility] [place] CLIA # [id number] [address] [place] [address] * (ABNORMAL) CBC WITH DIFFERENTIAL (04/16/2015 9:52 PM CDT) WBC 13.5(H) 4.0 - 10.0 K/uL 04/16/2015 10:03 PM CDT [facility] LABOR[facility] [place] RBC 4.79 3.93 - 5.22 M/uL 04/16/2015 10:03 PM CDT [facility] [place] HEMOGLOBIN 15.1 11.2 - 15.7 g/dL 04/16/2015 10:03 PM CDT [facility] [place] HEMATOCRIT 44.0 34.1 - 44.9 % 04/16/2015 10:03 PM CDT [employer] [place] MCV 91.9 79.4 - 94.8 fL 04/16/2015 10:03 PM CDT [facility] [place] MCH 31.5 25.6 - 32.2 pg 04/16/2015 10:03 PM CDT [facility] [place] MCHC 34.3 32.2 - 35.5 g/dL 04/16/2015 10:03 PM CDT [facility] [place] RDW 13.3 11.0 - 14.5 % 04/16/2015 10:03 PM CDT [facility] [place] RDW-STDEV 44.1 36.9 - 56.9 fL 04/16/2015 10:03 PM CDT [facility] [place] PLATELETS 285 163 - 337 K/uL 04/16/2015 10:03 PM CDT [employer] [facility] [place] MPV 10.9 10.0 - 14.8 fL 04/16/2015 10:03 PM CDT [facility] [place] Blood 04/16/2015 9:52 PM CDT 04/16/2015 9:52 PM CDT us Jamaica Kimble COMMODITY LOAN CLERK HEMATOLOGY ORDERABLES Final Res ult [facility] [place] CLIA # [id number] [address] [place] [address] documented in this encounter Visit Diagnoses Not on filedocumented in this encounter Care Teams Outpatient Surgery Rn Relationship Specialty Start Date End Date Gerardo Kingsley DO PCP - General Family Practice 12/21/18 documented as of this encounter
--- OUTSIDE RECORDS SUMMARY | 2025-05-19 12:34 | XMS_ITS | Encounter Summary ---
Author Organization [facility] Address [address] [place] [address] Care Team Providers Care Postdoctoral Research Fellow Name Role Phone Gerardo Kingsley DO Primary Care Provider Unavaila ble Encounter Details Date Type Department Care Team (Late st Contact Info) Description 11/20/2020 Lab Requisition [facility] [place] [address] [place] [phone] Gerardo Kingsley DO NO ADDRESS ON FILE [...] CBC WITH DIFFERENTIAL Routine 11/20/2020 2:22 PM UNDERWRITER SOLICITATION DIRECTOR TSH Routine 11/20/2020 2:10 PM UNDERWRITER SOLICITATION DIRECTOR LIPID PANEL Routine 11/20/2020 2:10 PM UNDERWRITER SOLICITATION DIRECTOR COMPREHENSIVE METABOLIC PANEL Routine 11/20/2020 2:10 PM UNDERWRITER SOLICITATION DIRECTOR documented in this encounter Results * (ABNORMAL) CBC WITH DIFFERENTIAL (11/20/2020 2:22 PM UNDERWRITER SOLICITATION DIRECTOR) WBC 7.5 4.0 - 10.0 K/uL 11/20/2020 2:44 PM [facility] RBC 4.65 3.93 - 5.22 M/uL 11/20/2020 2:44 PM [facility] HEMOGLOBIN 14.1 11.2 - 15.7 g/dL 11/20/2020 2:44 PM [facility] HEMATOCRIT 42.7 34.1 - 44.9 % 11/20/2020 2:44 PM [facility] MCV 91.8 79.4 - 94.8 fL 11/20/2020 2:44 PM [facility] MCH 30.3 25.6 - 32.2 pg 11/20/2020 2:44 PM [facility] MCHC 33.0 32.2 - 35.5 g/dL 11/20/2020 2:44 PM [facility] RDW 12.1 11.0 - 14.5 % 11/20/2020 2:44 PM [facility] RDW-STDEV 41.0 36.9 - 56.9 fL 11/20/2020 2:44 PM [facility] PLATELETS 373(H) 163 - 337 K/uL 11/20/2020 2:44 PM [facility] MPV 10.1 10.0 - 14.8 fL 11/20/2020 2:44 PM [facility] NEUTROPHILS 57 34 - 71 % 11/20/2020 2:44 PM [facility] LYMPHOCYTES 29 19 - 52 % 11/20/2020 2:44 PM [facility] MONOCYTES 8 5 - 13 % 11/20/2020 2:44 PM [facility] EOSINOPHILS 5 1 - 6 % 11/20/2020 2:44 PM [facility] BASOPHILS 1 0 - 1 % 11/20/2020 2:44 PM [facility] IMMATURE GRANULOCYTES 0 % 11/20/2020 2:44 PM [facility] NEUTROPHIL ABSOLUTE 4.31 1.56 - 6.13 K/uL 11/20/2020 2:44 PM [facility] LYMPHOCYTE ABSOLUTE 2.22 1.20 - 3.40 K/uL 11/20/2020 2:44 PM UNDERWRITER SOLICITATION DIRECTOR [facility] MONOCYTE ABSOLUTE 0.57(H) 0.24 - 0.36 K/uL 11/20/2020 2:44 PM UNDERWRITER SOLICITATION DIRECTOR [facility] EOSINOPHIL ABSOLUTE 0.34 0.04 - 0.36 K/uL 11/20/2020 2:44 PM UNDERWRITER SOLICITATION DIRECTOR [facility] BASOPHILS ABSOLUTE 0.08 0.01 - 0.08 K/uL 11/20/2020 2:44 PM UNDERWRITER SOLICITATION DIRECTOR [facility] IMMATURE GRANULOCYTES ABSOLUTE 0.02 K/uL 11/20/2020 2:44 PM UNDERWRITER SOLICITATION DIRECTOR [facility] Blood Venipuncture / Unknown 11/20/2020 2:22 PM UNDERWRITER SOLICITATION DIRECTOR 11/20/2020 2:22 PM UNDERWRITER SOLICITATION DIRECTOR Gerardo Kingsley DO HEMATOLOGY ORDERABLES Final Res ult Performing Organization Address City/[facility]/ZIP Co de Phone Number [facility] CLIA # [id number] [address] [place] [address] * TSH (11/20/2020 2:10 PM UNDERWRITER SOLICITATION DIRECTOR) TSH 1.90 0.27 - 4.20 uIU/mL 11/20/2020 3:25 PM [facility] Blood Venipuncture / Unknown 11/20/2020 2:10 PM UNDERWRITER SOLICITATION DIRECTOR 11/20/2020 2:10 PM UNDERWRITER SOLICITATION DIRECTOR Gerardo Kingsley DO CHEMISTRY ORDERABLES Final Resu lt [facility] CLIA # [id number] [address] [place] [address] * (ABNORMAL) LIPID PANEL (11/20/2020 2:10 PM UNDERWRITER SOLICITATION DIRECTOR) CHOLESTEROL 175 <200 mg/dL 11/20/2020 3:25 PM [facility] TRIGLYCERIDE 160(H) <150 mg/dL 11/20/2020 3:25 PM [facility] HDL 29(L) 40 - 59 mg/dL 11/20/2020 3:25 PM [facility] LDL CALCULATED 114(H) <100 mg/dL 11/20/2020 3:25 PM [facility] NON-HDL CHOLESTEROL 146(H) <130 mg/dL 11/20/2020 3:25 PM [facility] Blood Venipuncture / Unknown 11/20/2020 2:10 PM UNDERWRITER SOLICITATION DIRECTOR 11/20/2020 2:10 PM UNDERWRITER SOLICITATION DIRECTOR [facility] - 11/20/2020 3:25 PM UNDERWRITER SOLICITATION DIRECTOR TOTAL CHOLESTEROL mg/dL Desirable <200 Borderline high [...] Kingsley DO CHEMISTRY ORDERABLES Final Resu lt [facility] CLIA # [id number] [address] [place] [id number] * (ABNORMAL) COMPREHENSIVE METABOLIC PANEL (11/20/2020 2:10 PM UNDERWRITER SOLICITATION DIRECTOR) SODIUM 133(L) 136 - 145 mmol/L 11/20/2020 3:25 PM [facility] POTASSIUM 4.1 3.5 - 5.1 mmol/L 11/20/2020 3:25 PM [facility] CHLORIDE 100 98 - 107 mmol/L 11/20/2020 3:25 PM [facility] CO2 28 22 - 29 mmol/L 11/20/2020 3:25 PM [facility] CALCIUM 9.4 8.6 - 10.0 mg/dL 11/20/2020 3:25 PM [facility] BUN 12 6 - 20 mg/dL 11/20/2020 3:25 PM [facility] CREATININE 0.72 0.51 - 0.95 mg/dL 11/20/2020 3:25 PM [facility] GLUCOSE 90 74 - 99 mg/dL 11/20/2020 3:25 PM [facility] TOTAL PROTEIN 7.3 6.6 - 8.7 g/dL 11/20/2020 3:25 PM [facility] ALBUMIN 4.2 3.5 - 5.2 g/dL 11/20/2020 3:25 PM [facility] BILIRUBIN TOTAL 0.3 <=1.2 mg/dL 11/20/2020 3:25 PM [facility] ALKALINE PHOSPHATASE 84 35 - 104 U/L 11/20/2020 3:25 PM [facility] AST 15 10 - 35 U/L 11/20/2020 3:25 PM [facility] ALT 15 10 - 35 U/L 11/20/2020 3:25 PM [facility] GFR >60 >=60 mL/min/1.7 3 sq meter 11/20/2020 3:25 PM [facility] Comment: eGFR has not been validated [...] mL/min/1.7 3 sq meter 11/20/2020 3:25 PM [facility] ANION GAP 5(L) 12 - 20 mmol/L 11/20/2020 3:25 PM UNDERWRITER SOLICITATION DIRECTOR [facility] Blood Venipuncture / Unknown 11/20/2020 2:10 PM UNDERWRITER SOLICITATION DIRECTOR 11/20/2020 2:10 PM UNDERWRITER SOLICITATION DIRECTOR us Gerardo Kingsley DO CHEMISTRY ORDERABLES Final Resu lt [facility] CLIA # [id number] [address] [place] [phone] documented in this encounter Visit Diagnoses Not on filedocumented in this encounter Care Teams Postdoctoral Research Fellow Relationship Specialty Start Date End Date Gerardo Kingsley DO PCP - General Family Practice 12/21/18 documented as of this encounter
--- OUTSIDE RECORDS SUMMARY | 2025-05-19 12:34 | XMS_ITS | Encounter Summary ---
Author Organization [facility] Address [address] [facility] [place] [address] Care Team Providers Care Ampoule Examiner Name Role Phone Gerardo Kingsley DO Primary Care Provider Unavaila ble Reason for Referral * Outpatient Services (Routine) - Closed Specialty Diagnoses / Procedures Referred By Conchis naranjo Referred To Contact Diagnoses Chest pain Abnormal EKG Procedures ECHO STRESS TEST EXERCISE W DOPP AND COLOR FLOW Gerardo Kingsley DO [facility] Pre-Registration [place] CALL TO MAKE APPOINTMENT ONLY [address] [place] [place] [address] Phone: tel: fax: Referral ID Status Reason Start Date Expiration Date V isits Requested Visits Authorized [id number] Closed [facility] SCHEDULE ([facility]) 12/16/2017 01/16/2019 1 1 TRY BARN MANAGER Encounter Details Date Type Department Care Team ([facility] st Contact Info) Description 12/16/[address] [facility] Pre-Registration [place] CALL TO MAKE APPOINTMENT ONLY [address] [place] [address] [place] [phone] Gerardo Kingsley DO NO ADDRESS ON FILE [...] DOPP AND COLOR FLOW (01/01/2018 10:37 AM [facility]) EJECTION FRACTION 63 INTERFACE SYSTEM 01/01/2018 9:53 AM [facility] Narrative INTERFACE SYSTEM - 01/01/2018 11:32 AM [facility] Echocardiography-[place] [address] [place] [address] Stress Echocardiography Pool protocol Patient: Audie Study ECHO STRESS Karin Coates ID: TEST Gender: F : 1980 Age: 37 Room: Study 01/01/2018 Pt Outpatient Date: Status: Study 09:53 AM [facility] #: [id number] Time: Ordering:Gerardo Kingsley Interpreting:Steve Bryant MD Doll Dresser: Gay[facility] Crowder [facility] Indications and History: CP. Abnormal EKG. Summary [...] peak heart rate and blood pressure was 66888mq Hg/min. The patient experienced no chest pain [...] peak heart rate and blood pressure was 63893ip Hg/min. The patient experienced no chest pain [...] ventricle kenyetta RVID ED, PLAX 19.92 mm [facility] Echo Labs are accredited with the Inters[facility] health network[facility] Accreditation Commission - Echocardiography. Prepared and Electronically Authenticated Steve Bryant MD Confirmed 01/01/2018 11:32 Procedure Note Steve Bryant MD - 01/01/2018 [facility] Echocardiography-[address] [place] [address] Stress Echocardiography Pool protocol Patient: Audie Study ECHO STRESS Karin Aminata ID: TEST Gender: Jeaneth : 1980 Age: 37 Room: Study 01/01/2018 Pt Outpatient Date: Status: Study 09:53 AM [facility] #: [id number] Time: Ordering:Gerardo Kingsley Interpreting:Steve Bryant MD Doll Dresser: Gayle Crowder [facility] Indications and History: CP. Abnormal EKG. Summary [...] peak heart rate and blood pressure was 44438ry Hg/min. The patient experienced no chest pain [...] peak heart rate and blood pressure was 10839ul Hg/min. The patient experienced no chest pain [...] ventricle kenyetta RVID ED, PLAX 19.92 mm [facility] are accredited with the Intersocietal [...] (EKG) documented in this encounter Care Teams Ampoule Examiner Relationship Specialty Start Date End Date Gerardo Kingsley, PCP - General Family Practice 12/21/18 documented as of this encounter
--- OUTSIDE RECORDS SUMMARY | 2025-05-19 12:34 | XMS_ITS | Clinical Summary ---
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 MANAGER Gender Identity Not on file Sexual Orientation Not on file Last Filed Vital Signs Vital Sign Reading Time Taken Comments Blood Pressure 123/82 10/22/2023 5:45 PM BUSINESS INTEGRATION MANAGER Pulse 74 10/22/2023 5:45 PM BUSINESS INTEGRATION MANAGER Temperature 36.6 C (97.8 F) 10/22/2023 5:45 PM BUSINESS INTEGRATION MANAGER Respiratory Rate 20 10/22/2023 5:45 PM BUSINESS INTEGRATION MANAGER Oxygen Saturation 98% 10/22/2023 5:45 PM BUSINESS INTEGRATION MANAGER Inhaled Oxygen Concentration - - Weight 84.4 kg (186 lb) 10/22/2023 4:35 PM BUSINESS INTEGRATION MANAGER Height 175.3 cm (5' 9 ) 10/22/2023 4:35 PM BUSINESS INTEGRATION MANAGER Body Mass Index 27.47 10/22/2023 4:35 PM BUSINESS INTEGRATION MANAGER Plan of Treatment Health Maintenance Due Date Last Done Comments HPV VACCINES (1 - 3-dose series) 1995 DTAP/TDAP/TD VACCINES (1 - Tdap) 1999 HEPATITIS B VACCINES (1 of 3 - 19+ 3-dose series) 03/2000 HPV/Cotest (21-29) 2001 CERVICAL CANCER SCREENING 2010 HPV/Cotest (30-65) 2010 PAP SMEAR 2010 BREAST CANCER SCREENING 2020 INFLUENZA VACCINE (#1) 2025 08/26/2017
--- OUTSIDE RECORDS SUMMARY | 2025-05-19 12:34 | XMS_ITS | Clinical Summary ---
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
--- NOTE | 2025-05-19 12:42 | ECG_ITS ---
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
[2025-05-19 12:45] VITALS: BP 138/84; PULSE 111; RESP 16; TEMP 36.7; O2SAT 97
[2025-05-19 14:13] LABS: Alanine Aminotransferase 54 U/L (0-33); Albumin Level 4.3 g/dL (3.5-5.2); Alkaline Phosphatase 129 U/L (35-105); Anion Gap 19.4 (5-19); Aspartate Amino Transferase 38 U/L (0-32); Blood Urea Nitrogen 17 mg/dL (6-20); Calcium 9.2 mg/dL (8.5-10.5); Carbon Dioxide 21 mmol/L (22-29); Chloride 100 mmol/L (98-107); Creatinine Clr Calc Pharmacy 99.1400; Globulin 2.9 g/dL (1.3-4.6); Glucose 134 mg/dL (65-115); Osmolality Calculated 288 mOsm/kg (285-295); Potassium 3.4 mmol/L (3.5-5.1); Sodium 137 mmol/L (136-145); Total Protein 7.2 g/dL (6.6-8.7); Troponin(5th) Baseline < 6 ng/L (0-10)
[2025-05-19 14:38] LABS: Hematocrit 45.3 % (36-47); Hemoglobin 15.50 g/dL (11.27-16.99); Mean Corpuscular HGB Conc 34.2 g/dL (30-55); Mean Corpuscular Hemoglobin 30.6 pg (27-33); Mean Corpuscular Volume 89.5 fl (85-98); Nucleated Red Blood Cells % 0 %; Platelet Count 436 10^3/cmm (157-399); Red Blood Count 5.06 10^6/uL (3.85-5.65); White Blood Count 15.72 10^3/uL (3.29-11.43)
[2025-05-19 16:00] VITALS: BP 137/97; PULSE 85; RESP 18; O2SAT 98
--- NOTE | 2025-05-19 16:07 | CTR_ITS ---
PROCEDURE INFORMATION: Exam: CT Head Without Contrast Exam date and time: 05/19/2025 4:12 PM Age: 44 years old Clinical indication: Altered mental status/memory loss; Additional info: Encephalopathy, altered mental status TECHNIQUE: Imaging protocol: Computed tomography of the head without contrast. Radiation optimization: All CT scans at this facility use at least one of these dose optimization techniques: automated exposure control; mA and/or kV adjustment per patient size (includes targeted exams where dose is matched to clinical indication); or iterative reconstruction. COMPARISON: No relevant prior studies available. RADIATION DOSE METRICS: Total DLP (mGy-cm): 1109.48 FINDINGS: Brain: Normal. No hemorrhage. Unremarkable white matter. No mass effect. Cerebral ventricles: No ventriculomegaly. Paranasal sinuses: Visualized sinuses are unremarkable. No fluid levels. Mastoid air cells: Visualized mastoid air cells are well aerated. Bones: Unremarkable. No acute fracture. Soft tissues: Unremarkable. CT/CT head wo con* [id number] IMPRESSION: No acute intracranial abnormality.
--- NOTE | 2025-05-19 16:36 | ED_ITS ---
HPI - Chest Pain 2 General: Chief Complaint: Chest Pain Stated Complaint: chest pressure, tightness, shakey, sob Time Seen by Provider: 05/19/25 16:00 History of Present Illness: 44-year-old female who presents to the e mergency room with multiple complaints. She has been having chest pain that radiates into her left arm and shoulder for over a week now. This comes and goes. She is also had some back pain. She was seen for this recently in the emergency room and nothing was found at that time. She says this in combination with she is been having episodes where she says she kind of goes out of her head and does things and she does not know she is doing it. No lower extremity swelling. Currently no altered mental status or no focal deficits. She has had some nausea but no vomiting. She says she has been seeing stars at times. She says she had a syncopal episode today as well or something cricket to what she was talking about with going out of her head. Related Data Home Medications ?Medication ?Instructions ?Recorded ?Confirmed omeprazole 20 mg tablet,delayed 20 mg PO QAM 05/12/25 05/12/25 release Previous Rx's ?Medication ?Instructions ?Recorded albuterol sulfate 90 mcg/actuation 2 inh inhalation QI D PRN shortness 05/12/25 aerosol inhaler (Ventolin HFA) of breath or wheezing # 6.7 grams Allergies Allergy/AdvReac Type Severity Reaction Status Date / Time Alpha-Gal Allergy ALGY-Anaphy Verified 05/12/25 15:13 (Faasoeoej-Ifyid-4,3-Gala laxis Review of Systems 2 Narrative: Constitutional symptoms: Negative except as documented in HPI. Skin symptoms: Negative except as documented in HPI. Eye symptoms: Negative except as documented in HPI. ENMT symptoms: Negative except as documented in HPI. Respiratory symptoms: Negative except as documented in HPI. Cardiovascular symptoms: Negative except as documented in HPI. Gastrointestinal symptoms: Negative except as documented in HPI. Genitourinary symptoms: Negative except as documented in HPI. Musculoskeletal symptoms: Negative except as documented in HPI. Neurologic symptoms: Negative except as documented in HPI. Psychiatric symptoms: Negative except as documented in HPI. Endocrine symptoms: Negative except as documented in HPI. PFSH ED 2 PFSH: Social History (Updated 07/13/20 @ 16:16 by Erika Wood, HEALTH PLAN ADVISOR) Smoking and tobacco/nicotine status: current every day tobacco/nicotine user Alcohol intake: never Substance/Drug Use: never Physical Exam 2 Narrative: EXAM NARRATIVE: General: Alert, no acute distress. Skin: Warm, dry. Head: Normocephalic, atraumatic. Neck: Supple, trachea midline. Eye: Extraocular movements are intact. Ears, nose, mouth and throat: mucosa moist. Cardiovascular: Regular, Normal peripheral perfusion. Respiratory: Lungs are clear to auscultation, respirations are non-labored, breath sounds are equal, Symmetrical chest wall expansion. Gastrointestinal: Soft, Nontender, Non distended Musculoskeletal: Normal ROM, no deformity. Neurological: Alert and oriented, No focal neurological deficit observed. Psychiatric: Cooperative, appropriate mood & affect. Course 2 Vital Signs: Vital signs: Vital Signs Temperature 98.0 F 05/19/25 12:45 Pulse Rate 75 05/19/25 17:29 Respiratory Rate 20 H 05/19/25 17:29 Blood Pressure 116/87 05/19/25 17:29 Pulse Oximetry 93 05/19/25 17:29 Oxygen Delivery Me thod Room Air 05/19/25 12:45 MDM - Chest Pain Medical Decision Making Differential diagnosis for patient with chest pain includes but is not limited to and based on the above HPI, review of systems and physical exam: Pneumonia. unstable angina. angina. Acute coronary syndrome / CO. Pulmonary embolism. Costochondritis / musculoskeletal. Pleurisy. Pericarditis. Esophageal spasm. Pancreatis. Cholecystitis. Orders placed to evaluate differential diagnosis based on the above differential, HPI and physical exam. Also will workup the altered mental status and possible syncopal episodes EKG: Time 1242. Rate 112. Sinus tachycardia, nonspecific T wave abnormality, no ectopy, normal IA & QRS intervals, This was reviewed and interpreted by the ER physician at 1248 CT head: No acute intracranial process. no intracranial hemorrhage, no evidence of infarct. no evidence of acute fracture.This was reviewed and interpreted by myself the ER physician. Chest x-ray: No acute process. No infiltrate. No pneumothorax. This was reviewed and interpreted by myself the emergency room physician. I also reviewed the radiology report. Lab Review: Laboratory results were reviewed and interpreted by myself the emergency room physician. Patient does have some leukocytosis with a white count of 15.7. This is not left shifted. Recent labs showed a white count of 12. Hemoglobin just slightly above normal at 15.5. BUN/creatinine are normal at 17 and 0.9. Potassium slightly low at 3.4 AB.4 06/25/1988 on room air. This does indicate she has had some tachypnea and hypocapnia I reviewed the patient's medical record. Reexamination: Patient remained stable. No increased work of breathing. No altered mental status. No focal motor deficits. I discussed findings with the patient. I also discussed that this may very well be anxiety that is causing her fugue type states and chest pain. Either way I did not find anything life-threatening on a very extensive workup. They are looking to find a primary care provider. Assessment and plan: Noncardiac chest pain Probable panic attack/anxiety attacks ?IV Ativan in the emergency room. - Discharged home - Discussed plan with patient. Answered any questions. - Evaluation and treatment of this problem were appropriate in the emergency setting. Lab Data 05/19/25 13:28 05/19/25 13:28 Radiology Impressions Chest X-Ray 05/19/25 12:33 IMPRESSION: No acute findings. Head CT 05/19/25 16:07 IMPRESSION: No acute intracranial abnormality. Laboratory Results WBC 15.72 10^3/uL (3.29-11.43) H 05/19/25 13:28 RBC 5.06 10^6/uL (3.85-5.65) 05/19/25 13:28 Hgb 15.50 g/dL (11.27-16.99) 05/19/25 13:28 Hct 45.3 % (36-47) 05/19/25 13:28 MCV 89.5 fl (85-98) 05/19/25 13:28 MCH 30.6 pg (27-33) 05/19/25 13:28 MCHC 34.2 g/dL (30-55) 05/19/25 13:28 RDW 13.2 % (12.1-15.1) 05/19/25 13:28 Plt Count 436 10^3/cmm (157-399) H 05/19/25 13:28 MPV 10.0 fL (7.4-10.4) 05/19/25 13:28 Neut % (Auto) 61.0 % 05/19/25 13:28 Lymph % (Auto) 30.0 % 05/19/25 13:28 [place] % (Auto) 5.9 % 05/19/25 13:28 Eos % (Auto) 1.7 % 05/19/25 13:28 Baso % (Auto) 0.8 % 05/19/25 13:28 Neut # (Auto) 9.60 10^3/uL (1.8-7.7) H 05/19/25 13:28 Lymph # (Auto) 4.7 10^3/uL (0.8-4.8) 05/19/25 13:28 [place] # (Auto) 0.9 10^3/uL (0.2-0.9) 05/19/25 13:28 Eos # (Auto) 0.3 10^3/uL (0.0-0.8) 05/19/25 13:28 Baso # (Auto) 0.1 10^3/uL (0.0-0.1) 05/19/25 13:28 Nucleated RBC % (auto) 0 % 05/19/25 13:28 Nucleated RBCs # 0.0 /100WBC 05/19/25 13:28 Specimen Type Arterial 05/19/25 14:30 Sample Site Brachial, left 05/19/25 14:30 ABG pH 7.48 (7.35-7.45) H 05/19/25 14:30 ABG pCO2 31.4 mmHg (35-45) L 05/19/25 14:30 ABG pO2 88.0 mmHg (80.0-100.0) 05/19/25 14:30 ABG PO2/FiO2 Ratio 419 05/19/25 14:30 ABG HCO3 23.6 mmol/L (22-26) 05/19/25 14:30 ABG O2 Saturation 97.3 05/19/25 14:30 ABG Base Excess 1.0 mmol/L (-2.0-2.0) 05/19/25 14:30 Mitch Test Pos 05/19/25 14:30 A-a O2 Gradient 2.7 mmHg (5-10) L 05/19/25 14:30 Hematocrit 47.8 % (37-47) H 05/19/25 14:30 Hgb O2 Saturation 94.2 % (95-100) L 05/19/25 14:30 Carboxyhemoglobin 2.0 %THgb (0.4-20.1) 05/19/25 14:30 Methemoglobin 1.1 % (0.4-1.5) 05/19/25 14:30 Total Hemoglobin 15.6 g/dL (12-16) 05/19/25 14:30 Sodium 142.0 mmol/L (131-143) 05/19/25 14:30 Potassium 3.4 mmol/L (3.5-5.0) L 05/19/25 14:30 Glucose 103.0 mg/dL (70-115) 05/19/25 14:30 Ionized Calcium 1.1 mmol/L (1.1-1.4) 05/19/25 14:30 O2 Delivery Device Room air 05/19/25 14:30 FiO2 21.0 % 05/19/25 14:30 Salesforce Specialist ID Cak 05/19/25 14:30 Sodium 137 mmol/L (136-145) 05/19/25 13:28 Potassium 3.4 mmol/L (3.5-5.1) L 05/19/25 13:28 Chloride 100 mmol/L (98-107) 05/19/25 13:28 Carbon Dioxide 21 mmol/L (22-29) L 05/19/25 13:28 Anion Gap 19.4 (5-19) H 05/19/25 13:28 BUN 17 mg/dL (6-20) 05/19/25 13:28 Creatinine 0.9 mg/dL (0.5-0.9) 05/19/25 13:28 GFR Calculation 68.0 mL/min (90-130) L 05/19/25 13:28 Glucose 134 mg/dL (65-115) H 05/19/25 13:28 Calculated Osmolality 288 mOsm/kg (285-295) 05/19/25 13:28 Calcium 9.2 mg/dL (8.5-10.5) 05/19/25 13:28 Total Bilirubin 0.4 mg/dL (0.15-1.2) 05/19/25 13:28 AST 38 U/L (0-32) H 05/19/25 13:28 ALT 54 U/L (0-33) H 05/19/25 13:28 Alkaline Phosphatase 129 U/L (35-105) H 05/19/25 13:28 Troponin T Baseline < 6 ng/L (0-10) 05/19/25 13:28 Troponin T 120 Minute 6.34 ng/L (0-10) 05/19/25 16:08 Delta Troponin T 0.60773 ABS# (0-10) 05/19/25 16:08 Total Protein 7.2 g/dL (6.6-8.7) 05/19/25 13:28 Albumin 4.3 g/dL (3.5-5.2) 05/19/25 13:28 Globulin 2.9 g/dL (1.3-4.6) 05/19/25 13:28 Urine Color Dark yellow (Yellow) A 05/19/25 16:57 Urine Appearance Clear (CLEAR) 05/19/25 16:57 Urine pH 6.0 (5-7) 05/19/25 16:57 Ur Specific [place] 1.025 (1.005-1.030) 05/19/25 16:57 Urine Protein Trace (Negative) A 05/19/25 16:57 Urine Glucose (UA) Negative (Normal) 05/19/25 16:57 Urine Ketones Trace (Negative) 05/19/25 16:57 Urine Blood 1+ (Negative) A 05/19/25 16:57 Urine Nitrate Negative (Negative) 05/19/25 16:57 Urine Bilirubin Negative (Negative) 05/19/25 16:57 Urine Urobilinogen 1.0 mg/dL (Negative) 05/19/25 16:57 Ur Leukocyte Esterase Trace (Negative) A 05/19/25 16:57 Urine RBC 3-5 /hpf (0-2) 05/19/25 16:57 Urine WBC 0-5 /hpf (0-5) 05/19/25 16:57 Ur Squamous Epith Cells 6-10 /hpf (0-5) 05/19/25 16:57 Amorphous Sediment Not Reportable 05/19/25 16:57 Urine Bacteria None seen /hpf (NONE) 05/19/25 16:57 Hyaline Casts 2.46 /lpf 05/19/25 16:57 Urine Opiates Screen Negative ng/mL (Negative) 05/19/25 16:57 Ur Barbiturates Screen Negative ng/mL (Negative) 05/19/25 16:57 Ur Phencyclidine Scrn Negative ng/mL (Negative) 05/19/25 16:57 Ur Amphetamines Screen Negative ng/mL (Negative) 05/19/25 16:57 U Benzodiazepines Scrn Negative ng/mL (Negative) 05/19/25 16:57 Urine Cocaine Screen Negative ng/mL (Negative) 05/19/25 16:57 U Marijuana (THC) Screen Positive ng/mL (Negative) H 05/19/25 16:57 Ethyl Alcohol < 10 mg/dL (0-10) 05/19/25 16:08 All radiology interpretation(s) finalized by discharge Discharge Plan Discharge Patient Disposition: Home Clinical Impression: Non-cardiac chest pain Condition: Stable Prescriptions: No Action omeprazole 20 mg Tablet,Delayed Release (Dr/Ec) 20 mg PO QAM albuterol sulfate [Ventolin HFA] 90 mcg/actuation HFA aerosol inhaler 2 inh inhalation QID PRN (Reason: shortness of breath or wheezing) Qty: 6.7 0RF Discharge Orders: Discharge ED (Routine); Ordered 05/19/25 Ordered By: Gayle Lance Referrals: Art Deng FNP [Primary Care Provider, Family Practice] Discharge Diet: Usual diet Discharge Activity: Increase activity as tolerated Patient Instructions: Noncardiac Chest Pain (ED), Anxiety (ED), Opioid Safety, Pain Management, Patient Portal & Felipe Instructions Activity Restrictions/Additional Instructions: Thank you for choosing [facility] for your healthcare needs today. You have been screened and evaluated and felt safe for discharge. Health conditions do change or evolve sometimes and as such it is important that you follow up with your Primary Doctor to be re checked, 3-5 days is a general good time frame for follow up. You are always welcome to return to the ED for re assessment if your symptoms are worsening or you have new concerns Print Language: Ecuadorean Coding Level of Care Code ED Agricultural Technician for Ricky Vigil
[2025-05-19 16:40] LABS: Troponin 5 2HR 6.34 ng/L (0-10); Troponin 5 2HR Delta 0.34001 ABS# (0-10)
[2025-05-19 16:41] LABS: ABG PCO2 31.4 mmHg (35-45); ABG PH Result 7.48 (7.35-7.45); Alveolar-Arterial Oxygen Gradi 2.7 mmHg (5-10); Arterial Blood Gas Hematocrit 47.8 % (37-47); Blood Gas Allen Test Pos; Blood Gas Operator Identificat CAK; Blood Gas Sample Site Brachial, left; Blood Gas Sample Type Arterial; Carboxyhemoglobin 2.0 %THgb (0.4-20.1); Glucose Level-ABG 103.0 mg/dL (70-115); HCO3 ABG 23.6 mmol/L (22-26); Ionized Calcium Level - ABG 1.1 mmol/L (1.1-1.4); Methemoglobin 1.1 % (0.4-1.5); Oxygen Saturation ABG 97.3; PO2 ABG 88.0 mmHg (80.0-100.0); PO2 FiO2 Ratio Arterial Blood 419; Potassium Level - ABG 3.4 mmol/L (3.5-5.0); Sodium Level - ABG 142.0 mmol/L (131-143)
--- NOTE | 2025-05-19 16:43 | ECG_ITS ---
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 Measurements Intervals Two Dot Rate: 78 P: 74 WA: 218 QRS: 72 QRSD: 110 T: 81 QT: 368 QTc: 422 Interpretive Statements SINUS RHYTHM WITH FIRST DEGREE AV BLOCK Compared to ECG 05/19/2025 12:42:31 First degree AV block now present Sinus tachycardia no longer present Atrial abnormality no longer present T-wave abnormality no longer present Electronically Signed On 05-20-2025 08:45:56 CDT by Joo Sloan M.D. [email or web address]
[2025-05-19 16:53] LABS: Alcohol Level < 10 mg/dL (0-10)
[2025-05-19 17:10] LABS: Glucose Urine UA Negative (Normal); Nitrate Urine Negative (Negative); Specific Gravity, Urine 1.025 (1.005-1.030)
[2025-05-19 17:16] LABS: PCP Screen Urine Negative (Negative)
[2025-05-19 17:29] VITALS: BP 116/87; PULSE 75; RESP 20; O2SAT 93
[2025-05-19] MEDS: LORazepam 1 MG/0.5 ML injection IVP (17:46)
[2025-05-19 17:49] VITALS: BP 120/88; PULSE 70; O2SAT 98
== END 2025-05-19 17:51 | disposition home or self-care (01) ==
PROVIDERS: Family Medicine; Emergency Provider Emergency Medicine; PCP Nurse Practitioner Family
DX: R07.89 Other chest pain (principal); Z72.0 Tobacco use
CPT/HCPCS: 36415; 36600; 70450; 71045; 80051; 80053; 80306; 80307; 81001; 82330; 82805; 84484; 85025; 93005; 96374; 99285; J2060; J9999